=== PATIENT | male | born 1950 | race Caucasian/White ===

== ENCOUNTER 2020-10-05 08:05 | Outpatient (CLI) | payer MEDICARE, SELFPAY | END 2020-10-05 08:06 | disposition home or self-care (01) | LOC: ANHAUDASC 08:07 | PROVIDERS: PCP Family Medicine; Visit Provider Otolaryngology | DX: H90.3 Sensorineural hearing loss, bilateral (principal) | CPT/HCPCS: 92557; 92567 ==

== ENCOUNTER 2021-04-05 10:47 | Outpatient (CLI) | payer MEDICARE, SELFPAY ==
[2021-04-05 18:48] LABS: Basophils Absolute Auto 0.1 K/mm3 (0.0-0.1); Basophils Percent Auto 0.9 % (0.2-1.2); Eosinophils Absolute Auto 0.2 K/mm3 (0-0.3); Eosinophils Percent Auto 3.1 % (0-4.4); Hematocrit 49.4 % (42.0-52.0); Immature Granulocyte Absolute 0.02 K/mm3 (0.00-0.031); Immature Granulocyte Percent A 0.3 % (0-0.5); Lymphocytes Absolute Auto 1.73 K/mm3 (0.9-3.2); Lymphocytes Percent Auto 26.7 % (18.3-44.2); Mean Corpuscular HGB Conc 32.4 g/dl (32-36); Mean Corpuscular Hemoglobin 30.4 pg (26-34); Mean Corpuscular Volume 93.7 fl (80-100); Mean Platelet Volume 11.7 fl (7.4-10.4); Monocytes Absolute Auto 0.7 K/mm3 (0.1-0.6); Neutrophils Absolute Auto 3.8 K/mm3 (1.3-6.7); Platelet Count Result 184 k/mm3 (150-375); Red Blood Count 5.27 M/mm3 (4.6-6.20); Red Cell Distribution Width 14.2 % (11.5-14.5); White Blood Count 6.5 K/mm3 (4.5-10.0)
[2021-04-05 18:52] LABS: Alanine Aminotransferase 31 U/L (4-50); Albumin Level 4.1 g/dL (3.5-5.1); Alkaline Phosphatase 58 U/L (38-126); Anion Gap 5 mmol/L (8-16); Aspartate Amino Transferase 30 U/L (17-59); Bilirubin,Total 0.6 mg/dL (0.2-1.3); Blood Urea Nitrogen 18 mg/dL (9-20); Calcium 9.9 mg/dL (8.4-10.2); Carbon Dioxide 26 mmol/L (22-30); Chloride 108 mmol/L (98-107); Cholesterol 218 mg/dL (0-200); Estimated Glomerular Filt Rate > 60; Glucose 82 mg/dL (65-110); HDL Direct 35 mg/dL; Potassium 4.3 mmol/L (3.4-5.0); Sodium 139 mmol/L (137-145); Triglycerides 144 mg/dL (<150)
[2021-04-05 19:03] LABS: LDL Cholesterol Direct 169 mg/dL
[2021-04-05 19:22] LABS: Prostate Specific Antigen < 0.1 ng/mL (< OR = 4.0)
[2021-04-05 19:23] LABS: Thyroid Stimulating Hormone Reflex 0.898 uIU/mL (0.465-4.68)
[2021-04-05 19:44] LABS: Hemoglobin A1C 5.7 % (<5.7)
== END 2021-04-05 10:48 | disposition home or self-care (01) ==
PROVIDERS: PCP Family Medicine; Visit Provider Family Medicine
DX: E66.9 Obesity, unspecified (principal); H90.5 Unspecified sensorineural hearing loss; R63.8 Other symptoms and signs concerning food and fluid intake; I10 Essential (primary) hypertension; Z85.46 Personal history of malignant neoplasm of prostate; Z79.899 Other long term (current) drug therapy; Z12.5 Encounter for screening for malignant neoplasm of prostate
CPT/HCPCS: 36415; 80053; 80061; 83036; 84153; 84443; 85025; G0103

== ENCOUNTER 2021-06-07 11:50 | Emergency (ER) | payer MEDICARE, SELFPAY ==
[2021-06-07 11:54] VITALS: BP 157/79; PULSE 70; RESP 20; TEMP 36.7; O2SAT 97
--- NOTE | 2021-06-07 12:01 | ED.ABDPAIN ---
HPI - Abdominal Pain General Chief Complaint: Abdominal Pain Stated Complaint: left side pain Time Seen by Provider: 06/07/21 11:55 Source: patient and RN notes reviewed History of Present Illness HPI narrative: Patient is a 70-year-old male who presents the urgent care with complaints of left lower abdominal pain and diarrhea for 1 week. Patient states that he does have a history of a colitis many years ago but does not typically have any flares. Patient denies of any recent change in diet. Denies of any nausea or vomiting. Denies of fever. Patient has not taken anything [id number] for his symptoms. Patient is currently not in any acute distress and states that the pain is exacerbated on palpation. No other acute complaints. No acute distress noted. Patient aware of the plan of care. Some parts of this dictation were generated by voice recognition software and may contain typographical and/or grammatical inaccuracies. Related Data Home Medications Medication Instructions Recorded Confirmed pantoprazole 40 mg tablet,delayed 40 mg PO BID 09/28/20 06/07/21 release lisinopril 10 1 tablet PO DAILY 04/05/21 06/07/21 mg-hydrochlorothiazide 12.5 mg tablet citalopram 20 mg PO DAILY 06/07/21 06/07/21 Allergies Allergy/AdvReac Type Severity Reaction Status Date / Time No Known Allergies Allergy Unverified 06/07/21 12:00 Review of Systems Review of Systems: CONSTITUTIONAL: Denies fever, chills, or sweats. EYES: Denies visual changes, redness, or discharge. ENT: Denies rhinorrhea, congestion, sore throat, or otalgia. CARDIOVASCULAR: Denies chest pain, palpitations, or edema. RESPIRATORY: Denies cough or dyspnea. GASTROINTESTINAL: Reports of left lower abdominal pain with diarrhea GENITOURINARY: Denies dysuria or hematuria. SKIN: Denies rash or itching. MUSCULOSKELETAL: Denies back pain, joint pain, or myalgia. NEUROLOGIC: Denies headache, numbness, or weakness. All other systems reviewed are negative, except as documented in HPI. [facility] Past Medical History Medical History (Updated 06/07/21 @ 12:16 by ELHAM Johnson) Cancer Surgical History Surgical History (Updated 04/05/21 @ 10:00 by Yumiko Kirkpatrick [employer]) History of back surgery History of nasal surgery History of prostate surgery Family History Family History Father Heart problem Social History Social History Smoking status: Never smoker Alcohol intake: current Drinks per week: 1 Substance use: never Comments At the time of my signature, I reviewed and agree with the nursing past medical, surgical, social, and family history. There is no relevant family history pertinent to the patient complaint. Exam Narrative: GENERAL: This is a well-nourished, well-developed patient, in no apparent distress. HEAD: normocephalic, atraumatic. EYES: PERRL. Sclera clear/white. Vision is grossly intact. EARS: External ears normal NOSE: External nose normal with no obvious nasal discharge, nares without redness, no rhinorrhea. THROAT: Mucous membranes moist NECK: Neck supple RESPIRATORY: Clear to auscultation. Breath sounds equal bilaterally. No wheezes, rales, or rhonchi. GASTROINTESTINAL: Abdomen soft, mild left upper abdominal tenderness with moderate left lower tenderness, nondistended. Bowel sounds are hyperactive. SKIN: warm, intact with no suspicious lesions or rash, good texture and turgor. NEURO: awake, alert, and oriented to person, place and time. There were no obvious focal neurologic abnormalities. EXTREMITIES: No clubbing, cyanosis, or edema. Course Course Level of Care: Express Care Visit Vital Signs Vital signs: Vital Signs Temperature 98.0 F 06/07/21 11:54 Pulse Rate 70 06/07/21 11:54 Respiratory Rate 20 06/07/21 11:54 Blood Pressure 157/79 H 06/07/21 11:54 Pulse Oximetry 97 06/07/21 11:5
[2021-06-07 12:03] VITALS: BP 157/79; PULSE 70; RESP 20; TEMP 36.7; O2SAT 97
== END 2021-06-07 12:24 | disposition home or self-care (01) ==
PROVIDERS: Emergency Provider Nurse Practitioner Family; PCP Family Medicine
DX: R10.12 Left upper quadrant pain (principal); R10.32 Left lower quadrant pain; Z87.19 Personal history of other diseases of the digestive system; I10 Essential (primary) hypertension; F32.A Depression, unspecified; Z85.46 Personal history of malignant neoplasm of prostate; Z90.79 Acquired absence of other genital organ(s)
CPT/HCPCS: 99213; G0463

== ENCOUNTER 2021-06-28 07:57 | Outpatient (CLI) | payer MEDICARE, SELFPAY | END 2021-06-28 07:58 | disposition home or self-care (01) | LOC: ANHAUDASC 07:58 | PROVIDERS: PCP Family Medicine; Visit Provider Family Medicine | DX: H90.3 Sensorineural hearing loss, bilateral (principal) | CPT/HCPCS: 92557 ==

== ENCOUNTER 2021-11-08 00:55 | Day surgery (SDC) | payer MEDICARE, SELFPAY ==
[2021-10-29 11:07] VITALS: BMI 35.8
[2021-11-08 10:29] VITALS: BP 148/80; PULSE 80; RESP 18; TEMP 36.4; O2SAT 97
[2021-11-08] MEDS: LACTATED RINGERS 1,000 ML 150 ML IV CONT (10:41)
--- NOTE | 2021-11-08 10:49 | WPDANESEPPF ---
Anes - Initial Pre Proc Eval Procedure: Operation Date: 11/08/21 11:30 Proposed Procedures p Screening Colonoscopy - Jose Cotton MD Date/Time: 11/08/21 10:49 Surgeon: Jose Cotton MD Pre Op Diagnosis: neoplasm screening Patient Data Age: 71 Gender: M Height: 1.73 m Weight: 103 kg Last Vital Signs Temp 36.4 C L 11/08/21 10:29 Pulse 80 11/08/21 10:29 Resp 18 11/08/21 10:29 BP 148/80 H 11/08/21 10:29 Pulse Ox 97 11/08/21 10:29 O2 Del Method Room Air 11/08/21 10:29 Allergies Allergy/AdvReac Type Severity Reaction Status Date / Time No Known Allergies Allergy Verified 11/08/21 10:28 Home Medications Medication Instructions Recorded Confirmed Type pantoprazole 40 mg tablet,delayed 40 mg PO BID #180 tabs 08/09/21 10/29/21 Rx release citalopram 40 mg tablet 40 mg PO DAILY #90 tabs 10/04/21 10/29/21 Rx hydrochlorothiazide 25 mg tablet 25 mg PO DAILY #90 tabs 10/04/21 10/29/21 Rx lisinopril 10 mg tablet 10 mg PO DAILY #90 tabs 10/04/21 10/29/21 Rx Patient hx anesthesia problems: none Family hx anesthesia problems: none Results Review: All pre-operative results and documents have been reviewed as part of the pre-operative evaluation. [facility] Past Medical History Medical History (Updated 11/08/21 @ 10:49 by Luis Davis DO) Cancer Depression Hypertension KACI (obstructive sleep apnea) Surgical History Surgical History (Updated 04/05/21 @ 10:00 by Yumiko Kirkpatrick CMA) History of back surgery History of nasal surgery History of prostate surgery Family History Family History Father Heart problem Social History Social History Smoking status: Never smoker Alcohol intake: current Drinks per week: 1 Substance use: never Substance use type: does not use Living arrangements: with family Spiritual care concerns: No Anes - Eval Final PreProcedure Day of Procedure 11/08/21 10:49 Patient weight: obese Heart: regular rate and rhythm Lungs: clear to auscultation Airway: Mallampati scale class II Neurological: alert and oriented Last oral intake: >/= 8 hours ASA classification: III Emergent: no Anesthetic plan: proceed Anesthesia type and monitoring: general GIVS and standard monitoring Results Review: All pre-operative results and documents have been reviewed as part of the pre-operative evaluation. Informed Consent: The patient's anesthetic plan and its attendant risks and benefits were discussed with the patient/family/POA. Questions were solicited and answers provided to the satisfaction of the patient/family/POA.
--- NOTE | 2021-11-08 11:16 | PM.HPGS ---
History of Present Illness History of Present Illness Consent: Risks, benefits, and alternatives have been discussed and questions answered. Patient agrees to proceed with procedure. Chief complaint: neoplasm screening Narrative: Emmanuel Khanna is a 71 year old male with colon polyp about 5-6 years ago Review of Systems Constitutional: Constitutional: Denies headache(s) and Denies weakness Eyes: Eyes: Denies blurry vision ENT: Reports Normal hearing present, Denies headache(s) and Denies neck pain Cardiovascular: Cardiovascular: Denies chest pain and Denies dyspnea Respiratory: Respiratory: Denies dyspnea Gastrointestinal: Gastrointestinal: Reports no additional gastrointestinal complaints Genitourinary: Genitourinary: Denies dysuria Musculoskeletal: Musculoskeletal: Denies neck pain Integumentary/Breasts: Skin/Breast: Denies dry skin Neurologic: Reports Normal hearing present, Denies headache(s) and Denies weakness Psychiatric: Psychiatric: Denies anxiety Endocrine: Endocrine: Denies change in body appearance Hematologic/Lymphatic: Hematologic/Lymphatic: Denies easy bleeding Allergic/Immunologic: Allergic/Immunologic: Denies urticaria PMFSH Past Medical History Medical History (Updated 11/08/21 @ 10:49 by Luis Davis DO) Cancer Depression Hypertension KACI (obstructive sleep apnea) Surgical History Surgical History (Updated 04/05/21 @ 10:00 by Yumiko Kirkpatrick CMA) History of back surgery History of nasal surgery History of prostate surgery Family History Family History Father Heart problem Social History Social History Smoking status: Never smoker Alcohol intake: current Drinks per week: 1 Substance use: never Substance use type: does not use Living arrangements: with family Spiritual care concerns: No Meds Home Medications and Allergies Home Medications Medication Instructions Recorded Confirmed Type pantoprazole 40 mg tablet,delayed 40 mg PO BID #180 tabs 08/09/21 10/29/21 Rx release citalopram 40 mg tablet 40 mg PO DAILY #90 tabs 10/04/21 10/29/21 Rx hydrochlorothiazide 25 mg tablet 25 mg PO DAILY #90 tabs 10/04/21 10/29/21 Rx lisinopril 10 mg tablet 10 mg PO DAILY #90 tabs 10/04/21 10/29/21 Rx Allergies Allergy/AdvReac Type Severity Reaction Status Date / Time No Known Allergies Allergy Verified 11/08/21 10:28 Vital Signs Vital Signs - 24 hr 11/08/21 10:29 Temperature 97.5 F L Pulse Rate 80 Respiratory Rate 18 Blood Pressure 148/80 H Pulse Oximetry 97 Oxygen Delivery Room Air Exam Const: General: comfortable and no acute distress HENMT: General nose exam: Normal nares present Eyes: General: appearance normal, both eyes and all related structures Neck: Neck: no JVD Resp: Auscultation: clear to auscultation bilaterally Cardio: Rate: regular rate Rhythm: regular rhythm GI: Inspection: non-distended GI Palp: Yes Soft to palpation Skin: General skin exam: normal color Neuro: General: gait normal Speech: normal speech Extrem: General: normal to inspection Psych: Mental Status: mental status grossly normal Assessment and Plan Assessment and plan (1) Colon cancer screening: Code(s): Z12.11 - Encounter for screening for malignant neoplasm of colon Status: Acute Assessment and Plan: colonoscopy
[2021-11-08 11:35] VITALS: BP 108/74; PULSE 77; RESP 17; O2SAT 97
[2021-11-08 11:45] VITALS: BP 120/83; PULSE 78; RESP 18; O2SAT 98
[2021-11-08 11:55] VITALS: BP 133/78; PULSE 78; RESP 18; O2SAT 98
== END 2021-11-08 12:01 | disposition home or self-care (01) ==
PROVIDERS: PCP Family Medicine; Visit Provider Internal Medicine Gastroenterology
PROC: 0DJD8ZZ Inspection of Lower Intestinal Tract, Via Natural or Artificial Opening Endoscopic (ICD-10-PCS; CPT 45378; principal; 2021-11-08 11:30)
DX: Z12.11 Encounter for screening for malignant neoplasm of colon (principal); K63.5 Polyp of colon; K62.1 Rectal polyp; K57.30 Diverticulosis of large intestine without perforation or abscess without bleeding; F32.A Depression, unspecified; I10 Essential (primary) hypertension; G47.33 Obstructive sleep apnea (adult) (pediatric); Z85.9 Personal history of malignant neoplasm, unspecified; E66.9 Obesity, unspecified; Z68.34 Body mass index [BMI] 34.0-34.9, adult
CPT/HCPCS: 45380; 88305; J2704; J7120

== ENCOUNTER 2022-01-19 19:13 | Emergency (ER) | payer MEDICARE, SELFPAY ==
[2022-01-19 19:22] VITALS: BP 123/79; PULSE 90; RESP 20; TEMP 37.1; O2SAT 96
--- NOTE | 2022-01-19 20:30 | ED.SKABFB ---
HPI - Skin/Abscess/Foreign Bdy General Chief complaint: Skin/Abscess/Foreign Body Stated complaint: Skin Problem Time Seen by Provider: 01/19/22 20:30 Source: patient, RN notes reviewed and old records reviewed Mode of arrival: ambulatory Limitations: no limitations History of Present Illness HPI narrative: 71 year old male who presents to [facility] care with complaints of rash to the lower buttock area and to upper posterior thigh area for 1 week duration and small red raised area to right mid thigh which are itchy. 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 Patient reports that he has applied some OTC ointment to areas with no improvement. MD complaint: rash Onset (ago): week(s) (1) Severity scale (1-10): 3 Treatments prior to arrival: OTC topical medication Related Data Allergies Allergy/AdvReac Type Severity Reaction Status Date / Time No Known Allergies Allergy Verified 01/24/22 16:15 Review of Systems Review of Systems: CONSTITUTIONAL: Denies fever, chills, or sweats. CARDIOVASCULAR: Denies chest pain, palpitations, or edema. RESPIRATORY: Denies cough or dyspnea. SKIN: Reports red rash with itching to lower buttock and upper thigh region and small area of redness itching to right mid thigh region MUSCULOSKELETAL: Denies joint pain or myalgia. NEUROLOGIC: Denies headache, numbness, or weakness. All systems reviewed & are unremarkable except as noted in HPI and below PMFSH Past Medical History Medical History Cancer Depression Hypertension KACI (obstructive sleep apnea) Surgical History Surgical History History of back surgery History of nasal surgery History of prostate surgery Family History Family History Father Heart problem Social History Social History Smoking status: Never smoker Alcohol intake: current Drinks per week: 1 Substance use: never Substance use type: does not use Lack of Transportation: No Lack of Food: Never True Current Housing: I Have Housing Concerned About Future Housing: No Difficulty Paying Gas/Electric Bills: No Difficulty Paying for Meds: No Currently Unemployed: No Education: High School Diploma/GED Difficulty w/ Childcare or Family Care: No Spiritual care concerns: No Comments At time of signature, agree with nursing past medical, surgical, social and family history. There is no relevant family history pertinent to the presenting complaint Exam Narrative: GENERAL: Well-appearing, well-nourished, and in no acute distress. HEAD: Normocephalic, atraumatic. EYES: PERRLA, conjunctivae clear, and EOMI. ENT: Mucous membranes moist. Oropharynx without edema, erythema or lesions. NECK: Supple. No lymphadenopathy CHEST: Clear to auscultation. No respiratory distress. HEART: Regular rate and rhythm. SKIN: Warm, dry.? 6cm x 8cm areas of patchy red raised irritated tissue to posterior buttock bilaterally and upper thigh, 3cm area of patchy red rash right thigh areas are itchy NEURO:? Alert and oriented x3. PSYCH: Normal mood and affect Course Course Emergency Course: Patient is aware of diagnosis, understands and agrees to treatment plan.? Anticipatory guidance given.? Patient agrees to follow-up as directed and is aware of reasons to seek care at the emergency department. Portions of this record may have been created with voice recognition software Level of Care: Express Care Visit Vital Signs Vital signs: Vital Signs Temperature 37.1 C 01/19/22 19:22 Pulse Rate 90 01/19/22 19:22 Respiratory Rate 20 01/19/22 19:22 Blood Pressure 123/79 01/19/22 19:22 Pulse Oximetry 96 01/19/22 19:22 Oxygen Delivery Room Air 01/19/22 [facility]
== END 2022-01-19 20:55 | disposition home or self-care (01) ==
PROVIDERS: Emergency Provider Registered Nurse; PCP Family Medicine
DX: L73.9 Follicular disorder, unspecified (principal); I10 Essential (primary) hypertension; G47.33 Obstructive sleep apnea (adult) (pediatric); F32.A Depression, unspecified; Z85.46 Personal history of malignant neoplasm of prostate; Z90.79 Acquired absence of other genital organ(s)
CPT/HCPCS: 99213; G0463

== ENCOUNTER 2022-05-09 09:25 | Outpatient (CLI) | payer MEDICARE, SELFPAY ==
[2022-05-09 18:29] LABS: Basophils Absolute Auto 0.1 K/mm3 (0.0-0.1); Basophils Percent Auto 0.7 % (0.2-1.2); Eosinophils Absolute Auto 0.2 K/mm3 (0-0.3); Hematocrit 53.5 % (42.0-52.0); Hemoglobin 16.8 g/dL (14.0-18.0); Immature Granulocyte Absolute 0.02 K/mm3 (0.00-0.031); Immature Granulocyte Percent A 0.3 % (0-0.5); Lymphocytes Absolute Auto 1.77 K/mm3 (0.9-3.2); Lymphocytes Percent Auto 26.3 % (18.3-44.2); Mean Corpuscular HGB Conc 31.4 g/dl (32-36); Mean Corpuscular Hemoglobin 30.1 pg (26-34); Mean Corpuscular Volume 95.9 fl (80-100); Mean Platelet Volume 11.5 fl (7.4-10.4); Monocytes Absolute Auto 0.7 K/mm3 (0.1-0.6); Monocytes Percent Auto 10.2 % (2.6-8.5); Neutrophils Percent Auto 59.5 % (45.5-73.1); Platelet Count Result 191 k/mm3 (150-375); Red Blood Count 5.58 M/mm3 (4.6-6.20); Red Cell Distribution Width 13.7 % (11.5-14.5); White Blood Count 6.7 K/mm3 (4.5-10.0)
[2022-05-09 20:08] LABS: Alanine Aminotransferase 28 U/L (6-50); Albumin Level 4.1 g/dL (3.5-5.1); Alkaline Phosphatase 66 U/L (38-126); Anion Gap 5 mmol/L (8-16); Aspartate Amino Transferase 39 U/L (17-59); Bilirubin,Total 0.8 mg/dL (0.2-1.3); Blood Urea Nitrogen 15 mg/dL (9-20); Calcium 9.3 mg/dL (8.4-10.2); Carbon Dioxide 32 mmol/L (22-30); Chloride 103 mmol/L (98-107); Cholesterol 183 mg/dL (0-200); Estimated Glomerular Filt Rate > 60; Glucose 107 mg/dL (65-110); HDL Direct 35 mg/dL; Potassium 3.9 mmol/L (3.4-5.0); Sodium 140 mmol/L (137-145); Triglycerides 107 mg/dL (<150)
[2022-05-09 20:19] LABS: LDL Cholesterol Direct 121 mg/dL
[2022-05-09 20:38] LABS: Prostate Specific Antigen < 0.1 ng/mL (< OR = 4.0)
== END 2022-05-09 09:26 | disposition home or self-care (01) ==
PROVIDERS: PCP Family Medicine; Visit Provider Family Medicine
DX: R21 Rash and other nonspecific skin eruption (principal); I10 Essential (primary) hypertension; H91.90 Unspecified hearing loss, unspecified ear; E66.9 Obesity, unspecified; Z12.5 Encounter for screening for malignant neoplasm of prostate; Z85.46 Personal history of malignant neoplasm of prostate; F32.A Depression, unspecified; G47.33 Obstructive sleep apnea (adult) (pediatric)
CPT/HCPCS: 36415; 80053; 80061; 84153; 85025; G0103

== ENCOUNTER 2022-05-30 09:22 | Outpatient (CLI) | payer MEDICARE, SELFPAY ==
--- NOTE | 2022-05-30 09:25 | EST_ITS ---
Patient Info Name: Emmanuel Khanna Age: 71 years : 1950 Gender: Male Ht: 68 in Wt: 227 lbs BSA: 2.26 m2 HR: 65 bpm BP: 167 / 65 mmHg Technical Quality: Fair Exam Date: 05/30/2022 9:44 AM Exam Location: [facility] Patient Status: Outpatient Admit Date: 05/30/2022 Staff Ordering Physician: Rahul Pritchard MD Manager Pharmacy: [facility] Attending Provider: Rahul Pritchard MD Referring Physician: Macho BARROSO; Exercise Technologist: Sameera Chávez CT Exercise Physician: Simón Chavez DO Exam Type: CA stress echo Study Info Indications I10 - Essential (primary) hypertension Treadmill exercise stress echocardiogram is performed. Summary 1. 1. Negative Dariusz exercise stress test for ischemic ST changes by ECG criteria. 2. 2. Reduced functional capacity, achieving 7 METs of workload. 3. 3. Appropriate HR response to exercise. 4. 4. Appropriate HR recovery at 1 minute post exercise. 5. 5. Negative stress echocardiogram for ischemia by wall motion analysis. 6. 6. Patient informed of the above results. Stress Echo Findings Left Ventricle Appropriate increase in LV endocardial thickening with systole. Appropriate augmentation of contractility with systole. No wall motion abnormality. Left Ventricle Normal LV systolic function, no wall motion abnormality. Protocol: Dariusz Stress ECG Details Stage: REST Duration (min): 1 min : 18 sec Speed (mph): 0.0 Grade (%): 0 HR (bpm): 78 SBP (mmHg): 131 DBP (mmHg): 80 METS: --- Stage: REST Duration (min): 25 min : 59 sec Speed (mph): 0.0 Grade (%): 0 HR (bpm): 79 SBP (mmHg): 131 DBP (mmHg): 80 METS: --- Stage: STAGE 1 Duration (min): 1 min : 0 sec Speed (mph): 1.7 Grade (%): 10 HR (bpm): 97 SBP (mmHg): 131 DBP (mmHg): 80 METS: --- Stage: STAGE 1 Duration (min): 2 min : 0 sec Speed (mph): 1.7 Grade (%): 10 HR (bpm): 106 SBP (mmHg): 131 DBP (mmHg): 80 METS: --- Stage: STAGE 1 Duration (min): 3 min : 0 sec Speed (mph): 1.7 Grade (%): 10 HR (bpm): 108 SBP (mmHg): 163 DBP (mmHg): 65 METS: --- Stage: STAGE 2 Duration (min): 1 min : 0 sec Speed (mph): 2.5 Grade (%): 12 HR (bpm): 118 SBP (mmHg): 163 DBP (mmHg): 65 METS: --- Stage: STAGE 2 Duration (min): 2 min : 0 sec Speed (mph): 2.5 Grade (%): 12 HR (bpm): 127 SBP (mmHg): 159 DBP (mmHg): 70 METS: --- Stage: STAGE 2 Duration (min): 3 min : 0 sec Speed (mph): 2.5 Grade (%): 12 HR (bpm): 130 SBP (mmHg): 159 DBP (mmHg): 70 METS: --- Stage: STAGE 3 Duration (min): 0 min : 1 sec Speed (mph): 0.0 Grade (%): 0 HR (bpm): 130 SBP (mmHg): 159 DBP (mmHg): 70 METS: --- Stage: RECOVERY Duration (min): 0 min : 58 sec Speed (mph): 0.0 Grade (%): 0 HR (bpm): 104 SBP (mmHg): 150 DBP (mmHg): 63 METS: --- Stage: RECOVERY
== END 2022-05-30 09:23 | disposition home or self-care (01) ==
PROVIDERS: PCP Family Medicine; Visit Provider Family Medicine
DX: I10 Essential (primary) hypertension (principal)
CPT/HCPCS: 93351

== ENCOUNTER 2022-11-07 09:29 | Outpatient (CLI) | payer MEDICARE, SELFPAY ==
[2022-11-07 19:24] LABS: Basophils Percent Auto 0.5 % (0.2-1.2); Eosinophils Absolute Auto 0.2 K/mm3 (0-0.3); Hematocrit 53.9 % (42.0-52.0); Hemoglobin 17.3 g/dL (14.0-18.0); Immature Granulocyte Absolute 0.01 K/mm3 (0.00-0.031); Immature Granulocyte Percent A 0.2 % (0-0.5); Lymphocytes Absolute Auto 1.52 K/mm3 (0.9-3.2); Lymphocytes Percent Auto 26.4 % (18.3-44.2); Mean Corpuscular HGB Conc 32.1 g/dl (32-36); Mean Corpuscular Hemoglobin 30.9 pg (26-34); Mean Corpuscular Volume 96.3 fl (80-100); Mean Platelet Volume 11.7 fl (7.4-10.4); Monocytes Absolute Auto 0.5 K/mm3 (0.1-0.6); Neutrophils Absolute Auto 3.5 K/mm3 (1.3-6.7); Neutrophils Percent Auto 60.9 % (45.5-73.1); Platelet Count Result 165 k/mm3 (150-375); Red Cell Distribution Width 14.4 % (11.5-14.5); White Blood Count 5.8 K/mm3 (4.5-10.0)
[2022-11-07 20:08] LABS: Alanine Aminotransferase 27 U/L (6-50); Albumin Level 4.1 g/dL (3.5-5.1); Alkaline Phosphatase 52 U/L (38-126); Anion Gap 6 mmol/L (8-16); Aspartate Amino Transferase 47 U/L (17-59); Blood Urea Nitrogen 17 mg/dL (9-20); Calcium 9.4 mg/dL (8.4-10.2); Carbon Dioxide 29 mmol/L (22-30); Chloride 102 mmol/L (98-107); Estimated Glomerular Filt Rate > 60; Glucose 97 mg/dL (65-110); Potassium 3.8 mmol/L (3.4-5.0); Sodium 137 mmol/L (137-145)
[2022-11-07 20:24] LABS: Prostate Specific Antigen < 0.1 ng/mL (< OR = 4.0)
== END 2022-11-07 09:30 | disposition home or self-care (01) ==
PROVIDERS: PCP Family Medicine; Visit Provider Family Medicine
DX: E66.9 Obesity, unspecified (principal); G47.33 Obstructive sleep apnea (adult) (pediatric); I10 Essential (primary) hypertension; Z12.5 Encounter for screening for malignant neoplasm of prostate; Z85.46 Personal history of malignant neoplasm of prostate
CPT/HCPCS: 36415; 80053; 84153; 85025

== ENCOUNTER 2023-05-15 09:38 | Outpatient (CLI) | payer MEDICARE, SELFPAY ==
[2023-05-15 19:24] LABS: Alanine Aminotransferase 24 U/L (6-50); Alkaline Phosphatase 55 U/L (38-126); Anion Gap 4 mmol/L (8-16); Aspartate Amino Transferase 34 U/L (17-59); Bilirubin,Total 0.9 mg/dL (0.2-1.3); Blood Urea Nitrogen 15 mg/dL (9-20); Calcium 9.8 mg/dL (8.4-10.2); Carbon Dioxide 29 mmol/L (22-30); Chloride 103 mmol/L (98-107); Cholesterol 134 mg/dL (0-200); Estimated Glomerular Filt Rate > 60; Glucose 114 mg/dL (65-110); HDL Direct 40 mg/dL; Potassium 3.7 mmol/L (3.4-5.0); Sodium 136 mmol/L (137-145); Triglycerides 101 mg/dL (<150)
[2023-05-15 19:31] LABS: Hematocrit 53.7 % (42.0-52.0); Hemoglobin 17.3 g/dL (14.0-18.0); Mean Corpuscular HGB Conc 32.2 g/dl (32-36); Mean Corpuscular Hemoglobin 30.8 pg (26-34); Mean Corpuscular Volume 95.7 fl (80-100); Mean Platelet Volume 11.4 fl (7.4-10.4); Platelet Count Result 193 k/mm3 (150-375); Red Blood Count 5.61 M/mm3 (4.6-6.20); Red Cell Distribution Width 13.8 % (11.5-14.5); White Blood Count 6.9 K/mm3 (4.5-10.0)
[2023-05-15 19:35] LABS: LDL Cholesterol Direct 83 mg/dL
[2023-05-17 17:15] LABS: PSA, Free <0.01 ng/mL; PSA, Total <0.1 ng/mL (<=4.0)
== END 2023-05-15 09:39 | disposition home or self-care (01) ==
PROVIDERS: PCP Nurse Practitioner Adult Health; Visit Provider Family Medicine
DX: Z12.5 Encounter for screening for malignant neoplasm of prostate (principal); Z85.46 Personal history of malignant neoplasm of prostate; E66.9 Obesity, unspecified; F32.A Depression, unspecified; G47.33 Obstructive sleep apnea (adult) (pediatric); I10 Essential (primary) hypertension; R32 Unspecified urinary incontinence
CPT/HCPCS: 36415; 80053; 80061; 84153; 84154; 85027

== ENCOUNTER 2024-05-20 08:47 | Outpatient (CLI) | payer MEDICARE, SELFPAY ==
--- OUTSIDE RECORDS SUMMARY | 2024-05-20 09:23 | XMS_ITS | Clinical Summary ---
Author Organization [facility] [address] [facility] lt Address [address] [place] [address] Care Team Providers Care Belt Loop Machine Operator Name Role Phone Jose Bar MD Unavailable + Rahul Pritchard MD Primary Care Provider [phone] Jose Shearer MD Unavailable [phone] Allergies No known active allergies Medications furosemide (LASIX) 40 mg tablet Take 1 tablet (40 mg total) by mouth daily 30 tablet 11 0 Active cholecalciferol (VITAMIN D-3) 2000 unit capsule 1 capsule (2,000 Units total) daily Active ascorbic acid (VITAMIN C) 1,000 mg tablet Take 1 tablet (1,000 mg total) by mouth daily Active lisinopril-hydr oCHLOROthiazide (ZESTORETIC) 10-12.5 mg per tablet Take 1 tablet by mouth daily 90 tablet [address] (PROTONIX) 40 mg EC tablet Take 1 tablet (40 mg total) by mouth 2 (two) times a day 180 tablet 1 1 Active hydroCHLOROthia zide (HYDRODIURIL) 25 mg tablet Take 1 tablet (25 mg total) by mouth daily 2 Active rosuvastatin (CRESTOR) 20 mg tablet Take 1 tablet (20 mg total) by mouth daily 3 Active citalopram (CeleXA) 40 mg tablet Take 1 tablet (40 mg total) by mouth daily 3 Active oxyBUTYnin XL (DITROPAN XL) 15 mg 24 hr tablet Take 1 tablet (15 mg total) by mouth daily 4 Active celecoxib (CeleBREX) 200 mg capsuleIndicati ons:Postoperati ve Acute Pain Take 1 capsule (200 mg total) by mouth 2 (two) times a day 84 capsule 4 Active ondansetron (ZOFRAN) 8 mg tabletIndicatio ns:Prevention of Post-Operative Nausea and Vomiting Take 1 tablet (8 mg total) by mouth every 8 (eight) hours as needed for nausea or vomiting 20 tablet 2 4 Active senna-docusate (PERICOLACE) 8.6-50 mg Take 1 tablet by mouth 2 (two) times a day as needed for constipation 60 tablet 2 4 Active oxyCODONE-aceta minophen (PERCOCET) 5-325 mg per tabletIndicatio ns:Pain Take 1-2 tablets by mouth every 4 (four) hours as needed for pain 40 tablet 4 Active vitamin E 400 unit capsule Take 1 capsule (400 Units total) by mouth daily Active aspirin 325 mg enteric coated tabletIndicatio ns:Deep Vein Thrombosis Prevention Take 1 tablet (325 mg total) by mouth daily 42 tablet 4 Active Hospital, Clinic, or Other Facility Administered Medication Ordered Dose Route Frequency Start Date End Date Status lidocaine (XYLOCAINE) 10 mg/mL (1 %) injection 20 mgIndications:Administ ration of Local Anesthesia 20 mg infiltrate Once 04/29/2024 04/29/2024 Ended triamcinolone (KENALOG) 40 mg/mL injection 80 mgIndications:Arthriti s of carpometacarpal (CMC) joint of right thumb,Arthritis of carpometacarpal (CMC) joint of both thumbs 80 mg OTHER Once 04/29/2024 04/29/2024 Ende d Active Problems Problem Noted Date Diagnosed Date Aftercare following right knee joint replacement surgery 02/07/2024 Aftercare following left knee joint replacement surgery 01/11/2024 Prostate cancer 03/26/2020 Overview (03/26/2020): Added automatically from request for surgery [id number] Severe obesity (BMI 35.0-39.9) with comorbidity 02/10/2020 Current moderate episode of major depressive dis order 02/10/2020 GERD (gastroesophageal reflux disease) 8 Acute gastric ulcer 05/03/2017 Acute blood loss anemia 05/02/2017 Assessment & Plan (05/02/2017 12:20 PM DELIVERY LEAD): Consistent with upper GIB, will proceed with urgent EGD later today Keep hb>7 Melena 05/02/2017 Assessment & Plan (05/02/2017 12:21 PM DELIVERY LEAD): Npo status, EGD. IV protonix and monitor h/h Dyspnea on exertion 05/02/2017 Assessment & Plan (05/02/2017 12:21 PM DELIVERY LEAD): Due to symptomatic anemia, better after blood transfusion Exertional chest pain 05/02/2017 Gastrointestinal hemorrhage with melena 05/03/19 18 Assessment & Plan (05/02/2017 12:22 PM DELIVERY LEAD): egd Arthritis 09/21/2015 Pure hypercholesterolemia 09/21/2015 HTN (hypertension) 03/16/2015 Benign prostatic hypertrophy without urinary obs truction 07/13/2013 Overview (06/03/2016): BPH W/O URINARY OBSTRUCT Blood in urine 09/03/2009 Symptomatic anemia Gastric ulcer Resolved Problems Problem Noted Date Diagnosed Date Resolved Date Primary osteoarthritis of right knee 12/15/2023 02/07/2024 Bilateral primary osteoarthritis of knee 05/15/2017 02/07/2024 Encounters Date Type Department Care Team Description 04/29/2024 9:15 AM DELIVERY LEAD Office Visit [facility] [address] [place] [address] [address] [place] [id number] Lacy Landeros, EDWARD Bilateral hand pain (Primary Dx); Pain of hand, unspecified laterality; Arthritis of carpometacarpal (CMC) joint of right thumb; Arthritis of carpometacarpal (CMC) joint of both thumbs 04/01/2024 10:15 AM DELIVERY LEAD Office Visit [facility] Sports Medicine and Primary Care at [address] [place] [address] Keenan Mejia, Primary osteoarthritis of left knee (Primary Dx) 04/01/2024 Documentation [facility] Medical [facility] Sports Medicine and Primary Care at [address] [address] Riddhi Galindo MA 03/25/2024 9:00 AM DELIVERY LEAD Office Visit [facility] Sports Medicine and Primary Care at [address] [address] Keenan Mejia, Primary osteoarthritis of left knee (Primary Dx) 03/25/2024 Telephone [facility] Sports Medicine and Primary Care at [address] [id number] Riddhi Galindo MA from Last 3 Months Immunizations Immunization Administration Dates Next Due Influenza, Quadrivalent, Hig h Dose, Preservative Free, Intrr 10/21/2019 Influenza, Quadrivalent, Spl it, Preservative Free, Intramuscular 11/07/2016,02/26/2015 Influenza, Trivalent, High D ose, Split, Preservative Free, Intramuscular 12/04/2017 Influenza, Trivalent, IM (MDV) 11/06/2008 Influenza, Trivalent, Preser vative Free, Intramuscular 12/22/2014,01/21/2014 Influenza, Unspecified 01/10/2019 Pneumococcal Conjugate PCV 13 01/10/2019, 018,11/07/2016 Pneumococcal Polysaccharide PPV23 02/10/2020 Tdap 03/16/2015 Surgical History Surgery Date Site/Laterality Comments EYE SURGERY 04/07/2017 Right cataract removal with lens implate EYE SURGERY 04/17/2017 Left SPINE SURGERY L4-L5 disc and vertebrae fx NOSE SURGERY PROSTATE SURGERY Prostatectomy KNEE SURGERY Medical History Medical History Date Comments History of transfusion Hypertension CHF (congestive heart failure) (HCC) Sleep apnea Peptic ulceration GERD (gastroesophageal reflux disease) Delayed emergence from general anesthesia Cancer (HCC) Prostate cancer Depression Family History Medical History Relation Name Comments Coronary artery disease Brother 2 Isis nary artery disease; Other Father Hypertension, C AD; Relation Name Status Comments Brother 1 Alive Brother 2 Father Mother Social History Tobacco Use Types Packs/Day Years Used Date Smoking Tobacco: Never Smokeless Tobacco: Never Tobacco Cessation:Counseling Given: Not Answered Alcohol Use Standard Drinks/Week Comments Not Currently 0 (1 standard drink = 0.6 oz pur e alcohol) AUDIT-C Answer Date Recorded Q1: How often do you have a drink containing alc ohol? Monthly or less 12/21/2023 Q2: How many drinks containi ng alcohol do you have on a typical day when you are drinking? 1 or 2 12/21/2023 Frequency of Binge Drinking Not on file 11/28 PHQ-2 Answer Date Recorded PHQ-2 Total Score (If total score is 3 or more points, staff should administer the PHQ-9) 0 12/27/2023 Personal Safety Answer Date Recorded Have you ever been in or are you currently in a harmful physical or emotional relationship or is someone making you feel afraid or unsafe? Denies 12/27/2023 Sex and Gender Information Value Date Recorded Sex Assigned at Not on file Legal Sex Male 7:01 PM DELIVERY LEAD Gender Identity Not on file Sexual Orientation Not on file Obstetrics History Last Filed Vital Signs Vital Sign Reading Time Taken Comments Blood Pressure 125/81 04/01/2024 10:21 AM DELIVERY LEAD Pulse 66 04/01/2024 10:21 AM DELIVERY LEAD Temperature 36.5 C (97.7 F) 12/28/2023 8:41 AM CDT Respiratory Rate 16 03/25/2024 9:11 AM DELIVERY LEAD Oxygen Saturation 95% 12/28/2023 8:41 AM CDT Inhaled Oxygen Concentration - - Weight 98.4 kg (217 lb) 04/01/2024 10:21 AM DELIVERY LEAD Height 172.7 cm (5' 8 ) 04/01/2024 10:21 AM DELIVERY LEAD Body Mass Index 32.99 04/01/2024 10:21 AM DELIVERY LEAD Plan of Treatment Health Maintenance Due Date Last Done Comments Hepatitis C Screening 1950 Hepatitis B Screening 10/17/1969 Zoster Vaccine (1 of 2) 10/17/2001 Well Visit 65+ 02/09/2021 02/10/2020, 12/10/2018, 11/07/2016 Influenza Vaccine (#1) 2023 , 01/10/2019, 12/04/2017, Additional history exists Depression Screening 12/14/2024 12/15/2023, 03/30/2020, 03/26/2020, Additional history exists Fall Risk Assessment 12/27/2024 12/28/2023, 12/15/2023, 03/30/2020, Additional history exists Colon Cancer Screening-Colonoscopy 01/14/2025 01/14/2015 DTaP/Tdap/Td Vaccine (2 - Td or Tdap) 03/16/2025 03/16/2015 Colon Cancer Screening-CT Colonography Discontinued 01/14/2015 Colon Cancer Screening-DNA Stool Discontinued 01/15/20 15 Colon Cancer Screening-FIT Discontinued 01/14/2015 Colon Cancer Screening-Sigmoidoscopy Discontinued 01/14/2015 Pneumococcal vaccine 65+ Completed 020, 01/10/2019, 12/04/2017, Additional history exists Prostate Cancer Screening-PSA Discontinued , 10/05/2020, 02/24/2020, Additional history exists Medical Devices Implanted Type Area Plate Washer Device Identifier Shelf Expiration Date Model / Serial / Lot [employer] Component Femoral Knee Porous Posterior Stabilized Right Attune Size 6 [employer] [id number] - [id number] Implanted:Qty: 1 on 12/27/2023 by Jose Shearer MD at [facility] [employer] 09/26/2033 [id number] / / [id number] [employer] Attune Fb Tib Base Sz 6 Por [id number] - [id number] Implanted:Qty: 1 on 12/27/2023 by Jose Shearer MD at [facility] Right: Knee [employer] 08/26/2033 [id number] / / [id number] [employer] Attune 6mm Posterior Stabilize Fix Bearing Knee 6 Insert Tibial [id number] - [id number] Implanted:Qty: 1 on 12/27/2023 by Jose Shearer MD at [facility] Right: Knee [employer] 08/26/2028 [id number] / / [id number] Procedures Procedure Name Priority Date/Time Associated Diagnosis Comments NC ARTHROCENTESIS ASPIR&/INJ MAJOR JT/BURSA W/US Routine 04/01/2024 10:15 AM DELIVERY LEAD Primary osteoarthritis of left knee PSA DIAGNOSTIC Routine 10/25/2021 8:36 AM CDT Prostate cancer (HCC) COLONOSCOPY Routine 01/14/2015 from Last 3 Months or Most Recently Relevant to Health Maintenance Results * NC ARTHROCENTESIS ASPIR&/INJ MAJOR JT/BURSA W/US (04/01/2024 10:15 AM DELIVERY LEAD) Keenan Reed DO - 04/01/2024 10:15 AM DELIVERY LEAD Keenan Mejia DO 04/01/2024 10:52 AM Large Joint Injection w/ Ultrasound Guidance: L knee Performed by: Keenan Mejia DO Authorized by: Keenan Mejia DO Large Joint Injection/Aspiration: Consent Given by: Patient Site marked: the procedure site was marked Timeout: prior to procedure the correct patient, procedure, and site was verified Verbal consent obtained: Yes Supporting Documentation: Indications: Pain Procedure Details: Location: Knee Site: L knee Prep: patient was prepped and draped in usual sterile fashion Prep: patient was prepped using a clean technique Needle Size: 22 G Approach: Lateral Ultrasound guided: Yes Fluroscopic guidance: No Ultrasound guidance used for: Real-time guidance Sterile ultrasond techniques: Sterile gel and sterile probe covers were used Ultrasound note: Ultrasound guided left knee injection Patient name: Karena A Fielder Performing physician: Keenan Mejia DO, AKHIL, IFTIKHAR Reason for procedure: Left knee osteoarthritis Patient is supine with the left knee in passive 30 of flexion. The lateral knee was sterilized using Hibiclens. The L4-12 T transducer was placed on the proximal portion of the knee identifying the suprapatellar recess and joint capsule in long axis. The probe was moved to short axis and again the joint capsule was identified. A 22 gauge 1.5 in needle was inserted on the lateral aspect of the knee at the level of the capsule, and the needle tip was identified in the subcutaneous tissue. The needle was advanced, in real time, to the capsule and once noted within the capsule, a substrate of 3ml of Durolane was injected into the joint capsule. Flow of fluid within the joint capsule was noted for confirmation of placement. Needle was removed, the area was cleansed, and covered with a Band-Aid. Impression: 1 - successful injection of the left knee capsule under ultrasound guidance Medications: 60 mg hyaluronate sodium, stabilized 60 mg/3 mL us Keenan Mejia DO IN CLINIC[facility]BEDSIDE [facility] Final Result * PSA diagnostic (10/25/2021 8:36 AM CDT) PSA-Total <0.01 <=6.20 ng/mL SONIYA RIVAS ([place]) Comment: Interpretive Data AGE SEX REFERENCE INTERVAL 0 minutes-150 years Female None 0 minutes-49 years Male None 50-59 years Male 0-3.90 60-69 years Male 0-5.40 70-79 years Male 0-6.20 80-150 years Male 0-6.20 The Christine PSA Total assay procedure was used. Results from different manufacturers or methods may not be comparable. Serial testing should be performed using the same method. Current interpretive data last revised 21. Testing performed by: [facility], [address] [place] [address]., [id number] Blood 10/25/2021 8:36 AM CDT 10/25/2021 11:23 AM CDT David Martin MD LAB BLOOD ORDERABLES Final Re sult SONIYA EVELYN ([place]) [address] [facility] [place] [address] * Colonoscopy (01/14/2015) Anatomical Region Laterality Modality Other Historical Provider ENDOSCOPY PROCEDURES Elizabeth l Result from Last 3 Months or Most Recently Relevant to Health Maintenance [place] [address] MEDICARE [facility] INSURANCE [employer] MEDICARE GOLD [facility] [place] [place] [id number] MEDICARE [facility] Address: [address] [address] [place] [address] [employer] MEDICARE Advance Directives For more information, please contact: [phone] * Full Code (Latest Code Status on File) Date Activated Date Inactivated Comments 12/27/2023 11:46 AM 12/28/2023 3:04 PM * Full Code Date Activated Date Inactivated Comments 04/28/2020 2:23 PM 04/29/2020 9:22 PM * Full Code Date Activated Date Inactivated Comments 08/07/2017 7:08 AM 08/07/2017 10:41 AM * Full Code Date Activated Date Inactivated Comments 05/01/2017 9:52 PM 05/03/2017 9:05 PM Care Teams Belt Loop Machine Operator Relationship Specialty Start Date End Date Rahul Pritchard MD PCP - General Family Practice 05/03/21 Jose Bar MD Consulting Physician Gastroenterology 05/03/17 Jose Shearer MD [address] [place] [address] [place] [address] Surgeon Orthopedic Surgery 12/28/23
--- OUTSIDE RECORDS SUMMARY | 2024-05-20 09:23 | XMS_ITS | Encounter Summary ---
Author Organization [facility] Healthcare Address [address] [place] [address] Care Team Providers Care Commissary Superintendent Name Role Phone Jai Carson MD Primary Care Provider + [phone] Jose Bar MD Unavailable + Rahul Pritchard MD Primary Care Provider + [phone] Jose Shearer MD Unavailable [phone] Encounter Details Date Type Department Care Team (Late st Contact Info) Description 03/03/2020 Telephone [facility] Radiology [address] [place] [address] Nina Taylor, HEALTH PROMOTION EDUCATOR [address] [facility] [place] [address] Social History Tobacco Use Types Packs/Day Years Used Date Smoking Tobacco: Never Smokeless Tobacco: Never Alcohol Use Standard Drinks/Week Comments Not Currently 0 (1 standard drink = 0.6 oz pur e alcohol) PHQ-2 Answer Date Recorded PHQ-2 Score 0 02/10/2020 Sex and Gender Information Value Date Recorded Sex Assigned at Not on file Legal Sex Male 7:01 PM METER TESTER PRIMARY Gender Identity Not on file Sexual Orientation Not on file documented as of this encounter Plan of Treatment Not on file documented as of this encounter Visit Diagnoses Not on filedocumented in this encounter Care Teams Commissary Superintendent Relationship Specialty Start Date End Date [place] [place] [address] PCP - General 03/06/07 05/02/21 Rahul Pritchard MD [address] [place] [address] PCP - General Family Practice 05/03/21 Jose Bar MD [address] [place] [address] Consulting Physician Gastroenterology 05/03/17 Jose Shearer MD [address] [place] [address] Surgeon Orthopedic Surgery 12/28/23 documented as of this encounter
--- OUTSIDE RECORDS SUMMARY | 2024-05-20 09:23 | XMS_ITS | Clinical Summary ---
Author Organization [facility] Address [address], [place] [address] Phone Care Team Providers Care Longwall Machine Operator Helper Name Role Phone Jai Carson MD Primary Care Provider [phone] Allergies No known active allergies Medications lansoprazole (PREVACID) 15 MG CAPSULE DELAYED RELEASE Take 1 Cap by mouth daily. 90 Cap 3 09/21/2015 Active zolpidem (AMBIEN) 10 MG Tablet TAKE ONE TABLET BY MOUTH AT BEDTIME NEEDED FOR SLEEP 30 Tab 1 09/14/2016 Active lisinopril-hydr oCHLOROthiazide (PRINZIDE, ZESTORETIC) 10-12.5 MG Tablet TAKE ONE TABLET BY MOUTH ONCE DAILY 90 Tab 11/02/2016 Active Active Problems Problem Noted Date Diagnosed Date Pure hypercholesterolemia 09/21/2015 Arthritis 09/21/2015 HTN (hypertension) 03/16/2015 GERD (gastroesophageal reflux disease) Immunizations Immunization Administration Dates Next Due Influenza Vaccine, Quadrivalent, PF 02/26/2015 PUR TDAP 7+ YRS IM 03/16/2015 Family History Medical History Relation Name Comments Congestive Heart Failure Father Heart Attack Father Relation Name Status Comments Father Mother Social History Tobacco Use Types Packs/Day Years Used Date Smoking Tobacco: Never Smokeless Tobacco: Never Tobacco Cessation:Counseling Given: Yes Alcohol Use Standard Drinks/Week Comments Yes 0 (1 standard drink = 0.6 oz pur e alcohol) Rare Sex and Gender Information Value Date Recorded Sex Assigned at Not on file Legal Sex Male 8:57 PM CDT Gender Identity Not on file Sexual Orientation Not on file Last Filed Vital Signs Vital Sign Reading Time Taken Comments Blood Pressure 130/82 02/25/2018 8:46 AM ELECTRONIC GLUING MACHINE OPERATOR Pulse 78 02/25/2018 8:46 AM ELECTRONIC GLUING MACHINE OPERATOR Temperature 37.2 C (99 F) 02/25/2018 8:46 AM ELECTRONIC GLUING MACHINE OPERATOR Respiratory Rate 16 02/25/2018 8:46 AM ELECTRONIC GLUING MACHINE OPERATOR Oxygen Saturation 96% 02/25/2018 8:46 AM ELECTRONIC GLUING MACHINE OPERATOR Inhaled Oxygen Concentration - - Weight 115.7 kg (255 lb) 02/25/2018 8:46 AM ELECTRONIC GLUING MACHINE OPERATOR Height 172.7 cm (5' 8 ) 09/21/2015 9:46 AM CDT Body Mass Index 38.77 09/21/2015 9:46 AM CDT Plan of Treatment Health Maintenance Due Date Last Done Comments Hepatitis C Virus (HCV) Screening 1950 Cologuard 10/17/2001 Immunochemical Fecal Occult Blood 10/17/2001 Pneumococcal Immunization (5 0+ years) (1 of 1 - PCV) 10/17/2001 Zoster Immunization (1 of 2) 10/17/2001 Influenza Immunization (#1) 10/29/202301/29, 12/22/2014 SARS-COV-2 Immunization ( season) 2023 01/04/2021, 05/29/2020, 05/08/2020 Colonoscopy 01/14/2025 01/14/2015 Colorectal Cancer Screening 01/14/2025 Td Immunization Every 10 Yea rs (Adults With 1 Tdap) 03/16/2025 03/16/2015 Respiratory Syncytial Virus (RSV) Immunization (Adult) (1 - 1-dose 75+ series) 10/17/2026 01/14/2015 Hepatitis B Immunization Aged Out No longer eligible based on patient's age to complete this topic Meningococcal Immunization (ACWY) Aged Out No longer eligible b ased on patient's age to complete this topic Rotavirus Immunization Aged Out No lo nger eligible based on patient's age [place] [address] [place] [address] MEDICARE COMMERCIAL GENERIC Care Teams Longwall Machine Operator Helper Relationship Specialty Start Date End Date Jai Carson MD [address] [place] [address] PCP - General Internal Medicine 02/25/18
--- OUTSIDE RECORDS SUMMARY | 2024-05-20 09:23 | XMS_ITS | Referral Summary ---
Author Organization [facility] [address] [facility] lto Address [address] [place] [address] Care Team Providers Care Final Armature Tester Name Role Phone Jose Bar MD Unavailable + Rahul Pritchard MD Primary Care Provider [phone] Jose Shearer MD Unavailable [phone] Encounters Date Type Department Care Team Description 04/29/2024 9:15 AM COOLER CONVEYOR LOADER Office Visit [facility] Surgery [address] [place] [address] [place] [phone] Lacy Landeros NP Bilateral hand pain (Primary Dx); Pain of hand, unspecified laterality; Arthritis of carpometacarpal (CMC) joint of right thumb; Arthritis of carpometacarpal (CMC) joint of both thumbs 04/01/2024 Documentation [facility] at [address] [place] [phone] Riddhi Galindo MA 04/01/2024 10:15 AM COOLER CONVEYOR LOADER Office Visit [facility] Primary [facility] at [address] [place] [phone] Keenan Mejia DO Primary osteoarthritis of left knee (Primary Dx) 03/25/2024 Telephone [facility] at [address] [place] [phone] Riddhi Galindo MA 03/25/2024 9:00 AM COOLER CONVEYOR LOADER Office Visit [facility] Primary [facility] at [address] [place] [phone] Keenan Mejia DO Primary osteoarthritis of left knee (Primary Dx) from Last 3 Months Allergies No known active allergies Medications furosemide [...] as needed for constipation 60 tablet 2 10/31/202 4 Active oxyCODONE-aceta minophen (PERCOCET) 5-325 mg [...] (03/26/2020): Added automatically from request for surgery [id number] Severe obesity (BMI 35.0-39.9) with comorbidity 02/10/2020 Current moderate episode of major depressive dis order 02/10/2020 GERD (gastroesophageal reflux disease) 8 Acute gastric ulcer 05/03/2017 Acute blood loss anemia 05/02/2017 Assessment & Plan (05/02/2017 12:20 PM COOLER CONVEYOR LOADER): Consistent with upper GIB, will proceed with urgent EGD later today Keep hb>7 Melena 05/02/2017 Assessment & Plan (05/02/2017 12:21 PM COOLER CONVEYOR LOADER): Npo status, EGD. IV protonix and monitor h/h Dyspnea on exertion 05/02/2017 Assessment & Plan (05/02/2017 12:21 PM COOLER CONVEYOR LOADER): Due to symptomatic anemia, better after blood transfusion Exertional chest pain 05/02/2017 Gastrointestinal hemorrhage with melena 05/03/19 18 Assessment & Plan (05/02/2017 12:22 PM COOLER CONVEYOR LOADER): egd Arthritis 09/21/2015 Pure hypercholesterolemia 09/21/2015 HTN (hypertension) 03/16/2015 Benign prostatic hypertrophy without urinary obs truction 07/13/2013 Overview (06/03/2016): BPH W/O URINARY OBSTRUCT Blood in urine 09/03/2009 Symptomatic anemia Gastric ulcer Resolved Problems Problem Noted Date Diagnosed Date Resolved Date Primary osteoarthritis of right knee 12/15/2023 02/07/2024 Bilateral primary osteoarthritis of knee 05/15/2017 02/07/2024 Immunizations Immunization Administration Dates Next Due Influenza, Quadrivalent, Hig h Dose, Preservative Free, Intrr 10/21/2019 Influenza, Quadrivalent, Spl it, Preservative Free, Intramuscular 11/07/2016,02/26/2015 Influenza, Trivalent, High D ose, Split, Preservative Free, Intramuscular 12/04/2017 Influenza, Trivalent, IM (MDV) 11/06/2008 Influenza, Trivalent, Preser vative Free, Intramuscular 12/22/2014,01/21/2014 Influenza, Unspecified 01/10/2019 Pneumococcal Conjugate PCV 13 01/10/2019, 018,11/07/2016 Pneumococcal Polysaccharide PPV23 02/10/2020 Tdap 03/16/2015 Social History Tobacco Use Types Packs/Day Years [...] on file Legal Sex Male 7:01 PM COOLER CONVEYOR LOADER Gender Identity Not on file Sexual Orientation Not on file Last Filed Vital Signs Vital Sign Reading Time Taken Comments Blood Pressure 125/81 04/01/2024 10:21 AM COOLER CONVEYOR LOADER Pulse 66 04/01/2024 10:21 AM COOLER CONVEYOR LOADER Temperature 36.5 C (97.7 F) 12/28/2023 8:41 AM CDT Respiratory Rate 16 03/25/2024 9:11 AM COOLER CONVEYOR LOADER Oxygen Saturation 95% 12/28/2023 8:41 AM CDT Inhaled Oxygen Concentration - - Weight 98.4 kg (217 lb) 04/01/2024 10:21 AM COOLER CONVEYOR LOADER Height 172.7 cm (5' 8 ) 04/01/2024 10:21 AM COOLER CONVEYOR LOADER Body Mass Index 32.99 04/01/2024 10:21 AM COOLER CONVEYOR LOADER Plan of Treatment Not on file Medical Devices Implanted Type Area Stabilizing Machine Operator Device Identifier Shelf Expiration Date Model / Serial / Lot [employer] Component Femoral Knee Porous Posterior Stabilized Right Attune Size 6 [place] Chromium [id number] - [id number] Implanted:Qty: 1 on 12/27/2023 by Jose Shearer MD at [facility] [employer] 09/26/2033 [id number] / / [id number] [employer] Attune Fb Tib Base Sz 6 Por [id number] - [id number] Implanted:Qty: 1 on 12/27/2023 by Jose Shearer MD at [facility] Right: Knee [employer] 08/26/2033 [id number] / / [id number] [employer] Attune 6mm Posterior Stabilize Fix Bearing Knee 6 Insert Tibial [id number] - [id number] Implanted:Qty: 1 on 12/27/2023 by Jose Shearer MD at [facility] Right: Knee [employer] 08/26/2028 [id number] / / [id number] Procedures Procedure Name Priority Date/Time Associated Diagnosis Comments [place] ARTHROCENTESIS ASPIR&/INJ MAJOR JT/BURSA W/US Routine 04/01/2024 10:15 AM COOLER CONVEYOR LOADER Primary osteoarthritis of left knee PSA DIAGNOSTIC Routine 10/25/2021 8:36 AM CDT Prostate cancer (HCC) COLONOSCOPY Routine 01/14/2015 from Last 3 Months or Most Recently Relevant to Health Maintenance Results * [place] ARTHROCENTESIS ASPIR&/INJ MAJOR JT/BURSA W/US (04/01/2024 10:15 AM COOLER CONVEYOR LOADER) Narrative Keenan Mejia DO - 04/01/2024 10:15 AM COOLER CONVEYOR LOADER Keenan Mejia DO 04/01/2024 10:52 AM Large [...] guided left knee injection Patient name: Karena Gordon Fielder Performing physician: Keenan Mejia DO, AKHIL, PEGQSM Reason for procedure: Left knee osteoarthritis Patient [...] mg hyaluronate sodium, stabilized 60 mg/3 mL Keenan Mejia DO IN CLINIC/BEDSIDE [facility] [...] data last revised 21. Testing performed by: [facility], [address] [place] [address], [address] Blood 10/25/2021 8:36 AM CDT 10/25/2021 11:23 AM CDT David Martin MD LAB BLOOD ORDERABLES Final Re sult [facility] 1 [facility] Department [place] [address] * Colonoscopy (01/14/2015) Anatomical Region Laterality Modality Other Historical Provider ENDOSCOPY PROCEDURES Elizabeth l Result from Last 3 Months or Most Recently Relevant to Health Maintenance Insurance MEDICARE [facility] INSURANCE [facility] [place] [address] AETNA MEDICARE GOLD [facility] [place] [id number] MEDICARE AETNA MEDICARE Advance Directives For more information, please contact: [phone] * Full Code (Latest Code Status on File) Date Activated Date Inactivated Comments 12/27/2023 11:46 AM 12/28/2023 3:04 PM * Full Code Date Activated Date Inactivated Comments 04/28/2020 2:23 PM 04/29/2020 9:22 PM * Full Code Date Activated Date Inactivated Comments 08/07/2017 7:08 AM 08/07/2017 10:41 AM * Full Code Date Activated Date Inactivated Comments 05/01/2017 9:52 PM 05/03/2017 9:05 PM Care Teams Final Armature Tester Relationship Specialty Start Date End Date Rahul Pritchard MD PCP - General Family Practice 05/03/21 Jose Bar MD Consulting Physician Gastroenterology 05/03/17 Jose Shearer MD [address] [place] [address] [place] [address] Surgeon Orthopedic Surgery 12/28/23
[2024-05-20 19:51] LABS: Basophils Percent Auto 0.6 % (0.2-1.2); Eosinophils Absolute Auto 0.2 K/mm3 (0-0.3); Eosinophils Percent Auto 3.4 % (0-4.4); Hematocrit 54.5 % (42.0-52.0); Immature Granulocyte Absolute 0.01 K/mm3 (0.00-0.031); Immature Granulocyte Percent A 0.1 % (0-0.5); Lymphocytes Absolute Auto 1.59 K/mm3 (0.9-3.2); Lymphocytes Percent Auto 23.3 % (18.3-44.2); Mean Corpuscular HGB Conc 31.2 g/dl (32-36); Mean Corpuscular Hemoglobin 29.2 pg (26-34); Mean Corpuscular Volume 93.6 fl (80-100); Monocytes Absolute Auto 0.5 K/mm3 (0.1-0.6); Monocytes Percent Auto 7.6 % (2.6-8.5); Neutrophils Absolute Auto 4.4 K/mm3 (1.3-6.7); Platelet Count Result 206 k/mm3 (150-375); Red Blood Count 5.82 M/mm3 (4.6-6.20); Red Cell Distribution Width 15.1 % (11.5-14.5); White Blood Count 6.8 K/mm3 (4.5-10.0)
[2024-05-20 20:51] LABS: Alanine Aminotransferase 21 U/L (6-50); Albumin Level 4.1 g/dL (3.5-5.1); Alkaline Phosphatase 66 U/L (38-126); Anion Gap 5 mmol/L (4-12); Aspartate Amino Transferase 32 U/L (17-59); Bilirubin,Total 1.2 mg/dL (0.2-1.3); Blood Urea Nitrogen 16 mg/dL (9-20); Carbon Dioxide 32 mmol/L (22-30); Chloride 101 mmol/L (98-107); Cholesterol 144 mg/dL (0-200); Estimated Glomerular Filt Rate > 60; Glucose 103 mg/dL (65-110); HDL Direct 48 mg/dL; Magnesium 2.1 mg/dL (1.6-2.3); Potassium 4.1 mmol/L (3.4-5.0); Sodium 138 mmol/L (137-145); Triglycerides 70 mg/dL (<150)
[2024-05-20 21:02] LABS: LDL Cholesterol Direct 78 mg/dL
[2024-05-20 21:21] LABS: Prostate Specific Antigen < 0.1 ng/mL (< OR = 4.0)
== END 2024-05-20 08:48 | disposition home or self-care (01) ==
LOC: ANHBWCLAB 08:48
PROVIDERS: PCP Nurse Practitioner Adult Health; Visit Provider Nurse Practitioner Adult Health
DX: Z51.81 Encounter for therapeutic drug level monitoring (principal); Z12.5 Encounter for screening for malignant neoplasm of prostate; I10 Essential (primary) hypertension
CPT/HCPCS: 36415; 80053; 80061; 82607; 83735; 84153; 85025; G0103

== ENCOUNTER 2024-07-04 00:43 | Day surgery (SDC) | payer MEDICARE, SELFPAY ==
[2024-06-24 11:46] VITALS: BMI 31.8
--- OUTSIDE RECORDS SUMMARY | 2024-07-04 00:45 | XMS_ITS | Referral Summary ---
Author Organization [facility] 155 [facility] lt Address [address] [place] [address] Care Team Providers Care Dish Room Worker Name Role Phone Jose Bar MD Unavailable + Rahul Pritchard MD Primary Care Provider [phone] Jose Shearer MD Unavailable [phone] Encounters Date Type Department Care Team Description 04/29/2024 9:15 AM WALLPAPERER HELPER Office Visit [facility] Surgery [address] [place] [address] [place] [phone] Lacy Landeros NP Bilateral hand pain (Primary Dx); Pain of hand, unspecified laterality; Arthritis of carpometacarpal (CMC) joint of right thumb; Arthritis of carpometacarpal (CMC) joint of both thumbs from Last 3 Months Allergies No known [...] by mouth daily 42 tablet 4 Active Active Problems Problem Noted Date Diagnosed Date Aftercare following right knee joint replacement surgery 02/07/2024 Aftercare following left knee joint replacement surgery 01/11/2024 Prostate cancer 03/26/2020 Overview (03/26/2020): Added automatically from request for surgery [id number] Severe obesity (BMI 35.0-39.9) with comorbidity 02/10/2020 Current moderate episode of major depressive dis order 02/10/2020 GERD (gastroesophageal reflux disease) 8 Acute gastric ulcer 05/03/2017 Acute blood loss anemia 05/02/2017 Assessment & Plan (05/02/2017 12:20 PM WALLPAPERER HELPER): Consistent with upper GIB, will proceed with urgent EGD later today Keep hb>7 Melena 05/02/2017 Assessment & Plan (05/02/2017 12:21 PM WALLPAPERER HELPER): Npo status, EGD. IV protonix and monitor h/h Dyspnea on exertion 05/02/2017 Assessment & Plan (05/02/2017 12:21 PM WALLPAPERER HELPER): Due to symptomatic anemia, better after blood transfusion Exertional chest pain 05/02/2017 Gastrointestinal hemorrhage with melena 05/03/19 18 Assessment & Plan (05/02/2017 12:22 PM WALLPAPERER HELPER): egd Arthritis 09/21/2015 Pure hypercholesterolemia 09/21/2015 HTN [...] on file Legal Sex Male 7:01 PM WALLPAPERER HELPER Gender Identity Not on file Sexual Orientation Not on file Last Filed Vital Signs Vital Sign Reading Time Taken Comments Blood Pressure 125/81 04/01/2024 10:21 AM WALLPAPERER HELPER Pulse 66 04/01/2024 10:21 AM WALLPAPERER HELPER Temperature 36.5 C (97.7 F) 12/28/2023 8:41 AM CDT Respiratory Rate 16 03/25/2024 9:11 AM WALLPAPERER HELPER Oxygen Saturation 95% 12/28/2023 8:41 AM CDT Inhaled Oxygen Concentration - - Weight 98.4 kg (217 lb) 04/01/2024 10:21 AM WALLPAPERER HELPER Height 172.7 cm (5' 8 ) 04/01/2024 10:21 AM WALLPAPERER HELPER Body Mass Index 32.99 04/01/2024 10:21 AM WALLPAPERER HELPER Plan of Treatment Not on file Medical Devices Implanted Type Area Reimbursement Consultant Device Identifier Shelf Expiration Date Model / Serial / Lot [employer] Component Femoral Knee Porous Posterior Stabilized Right Attune Size 6 [place] Chromium [id number] - [id number] Implanted:Qty: 1 on 12/27/2023 by Jose Shearer MD at [facility] [employer] 09/26/2033 [id number] / / [id number] [employer] Attune Fb Tib Base Sz 6 Por [id number] - [id number] Implanted:Qty: 1 on 12/27/2023 by Jose Shearer MD at [facility] Right: Knee [employer] 08/26/2033 [id number] / / [id number] [employer] Attune 6mm Posterior Stabilize Fix Bearing Knee 6 Insert Tibial [id number] - [id number] Implanted:Qty: 1 on 12/27/2023 by Jose Shearer MD at [facility] Right: Knee [employer] 08/26/2028 [id number] / / [id number] Procedures Procedure Name Priority Date/Time Associated Diagnosis Comments PSA DIAGNOSTIC Routine 10/25/2021 8:36 AM CDT Prostate cancer (HCC) COLONOSCOPY Routine 01/14/2015 from Last 3 Months or Most Recently Relevant to Health Maintenance Results * PSA diagnostic (10/25/2021 8:36 AM CDT) PSA-Total <0.01 <=6.20 ng/mL [facility] ([place] Comment: Interpretive Data AGE SEX REFERENCE INTERVAL [...] data last revised 21. Testing performed by: [facility], [address] [place] [address]., [address] Blood 10/25/2021 8:36 AM CDT 10/25/2021 11:23 AM CDT us David Martin MD LAB BLOOD ORDERABLES Final Re sult [facility] ([place]) 1 [facility] Department [place] [address] * Colonoscopy (01/14/2015) Anatomical Region Laterality Modality Other us Historical Provider ENDOSCOPY PROCEDURES Elizabeth l Result from Last 3 Months or Most Recently Relevant to Health Maintenance Insurance MEDICARE [facility] [place] [address] MEDICARE AETNA MEDICARE Advance Directives For more information, please contact: [phone] * Full Code (Latest Code Status on File) Date Activated Date Inactivated Comments 12/27/2023 11:46 AM 12/28/2023 3:04 PM * Full Code Date Activated Date Inactivated Comments 04/28/2020 2:23 PM 04/29/2020 9:22 PM * Full Code Date Activated Date Inactivated Comments 08/07/2017 7:08 AM 08/07/2017 10:41 AM * Full Code Date Activated Date Inactivated Comments 05/01/2017 9:52 PM 05/03/2017 9:05 PM Care Teams Dish Room Worker Relationship Specialty Start Date End Date Rahul Pritchard MD PCP - General Family Practice 05/03/21 Jose Bar MD Consulting Physician Gastroenterology 05/03/17 Jose Shearer MD [address] [place] [address] [place] [address] Surgeon Orthopedic Surgery 12/28/23
--- OUTSIDE RECORDS SUMMARY | 2024-07-04 00:45 | XMS_ITS | Clinical Summary ---
Author Organization [facility] [address] [facility] lt Address [address] [facility] [facility] [place] [address] Care Team Providers Care Court Messenger Name Role Phone Jose Bar MD Unavailable + Rahul Pritchard MD Primary Care Provider [phone] Jose Shearer MD Unavailable [phone] Allergies No known active allergies Medications furosemide [...] (03/26/2020): Added automatically from request for surgery [id number] Severe obesity (BMI 35.0-39.9) with comorbidity 02/10/2020 Current moderate episode of major depressive dis order 02/10/2020 GERD (gastroesophageal reflux disease) 8 Acute gastric ulcer 05/03/2017 Acute blood loss anemia 05/02/2017 Assessment & Plan (05/02/2017 12:20 PM ORNAMENTAL IRON WORKER): Consistent with upper GIB, will proceed with urgent EGD later today Keep hb>7 Melena 05/02/2017 Assessment & Plan (05/02/2017 12:21 PM ORNAMENTAL IRON WORKER): Npo status, EGD. IV protonix and monitor h/h Dyspnea on exertion 05/02/2017 Assessment & Plan (05/02/2017 12:21 PM ORNAMENTAL IRON WORKER): Due to symptomatic anemia, better after blood transfusion Exertional chest pain 05/02/2017 Gastrointestinal hemorrhage with melena 05/03/19 18 Assessment & Plan (05/02/2017 12:22 PM ORNAMENTAL IRON WORKER): egd Arthritis 09/21/2015 Pure hypercholesterolemia 09/21/2015 HTN [...] Department Care Team Description 04/29/2024 9:15 AM ORNAMENTAL IRON WORKER Office Visit [facility] Surgery [address] [place] [address] [address] [place] [address] Lacy Landeros, EDWARD Bilateral hand pain (Primary Dx); Pain of hand, unspecified laterality; Arthritis of carpometacarpal (CMC) joint of right thumb; Arthritis of carpometacarpal (CMC) joint of both thumbs from Last 3 Months Immunizations Immunization Administration [...] on file Legal Sex Male 7:01 PM ORNAMENTAL IRON WORKER Gender Identity Not on file Sexual Orientation Not on file Obstetrics History Last Filed Vital Signs Vital Sign Reading Time Taken Comments Blood Pressure 125/81 04/01/2024 10:21 AM ORNAMENTAL IRON WORKER Pulse 66 04/01/2024 10:21 AM ORNAMENTAL IRON WORKER Temperature 36.5 C (97.7 F) 12/28/2023 8:41 AM CDT Respiratory Rate 16 03/25/2024 9:11 AM ORNAMENTAL IRON WORKER Oxygen Saturation 95% 12/28/2023 8:41 AM CDT Inhaled Oxygen Concentration - - Weight 98.4 kg (217 lb) 04/01/2024 10:21 AM ORNAMENTAL IRON WORKER Height 172.7 cm (5' 8 ) 04/01/2024 10:21 AM ORNAMENTAL IRON WORKER Body Mass Index 32.99 04/01/2024 10:21 AM ORNAMENTAL IRON WORKER Plan of Treatment Health Maintenance Due Date [...] history exists Medical Devices Implanted Type Area Telecommunications Line Mechanic Device Identifier Shelf Expiration Date Model / Serial / Lot [employer] Component Femoral Knee Porous Posterior Stabilized Right Attune Size 6 [employer] Chromium [id number] - [id number] Implanted:Qty: 1 on 12/27/2023 by Jose Shearer MD at [facility] [employer] 09/26/2033 [id number] / / [id number] [employer] Attune Fb Tib Base Sz 6 Por [id number] - [id number] Implanted:Qty: 1 on 12/27/2023 by Jose Shearer MD at [facility] Right: Knee [employer] 08/26/2033 [id number] / / [id number] [employer] Attune 6mm Posterior Stabilize Fix Bearing Knee 6 Insert Tibial [id number] - [id number] Implanted:Qty: 1 on 12/27/2023 by Jose Shearer MD at [facility] Right: Knee [employer] 08/26/2028 [id number] / / [id number] Procedures Procedure Name Priority Date/Time Associated Diagnosis Comments PSA DIAGNOSTIC Routine 10/25/2021 8:36 AM CDT Prostate cancer (HCC) COLONOSCOPY Routine 01/14/2015 from Last 3 Months or Most Recently Relevant to Health Maintenance Results * PSA diagnostic (10/25/2021 8:36 AM CDT) PSA-Total <0.01 <=6.20 ng/mL [facility] ([place]) Comment: Interpretive Data AGE SEX REFERENCE INTERVAL [...] data last revised 21. Testing performed by: [facility], [address] [place] [address]., [address] Blood 10/25/2021 8:36 AM CDT 10/25/2021 11:23 AM CDT David Martin MD LAB BLOOD ORDERABLES Final Re sult [facility] ([place]) 1 [facility] Department [place] [address] * Colonoscopy (01/14/2015) Anatomical Region Laterality Modality Other us Historical Provider ENDOSCOPY PROCEDURES Elizabeth l Result from Last 3 Months or Most Recently Relevant to Health Maintenance Insurance MEDICARE [facility] AETNA MEDICARE GOLD MEDICARE [facility] Address: [address] [address] [place] [address] AETNA MEDICARE Advance Directives For more information, please contact: [phone] * Full Code (Latest Code Status on File) Date Activated Date Inactivated Comments 12/27/2023 11:46 AM 12/28/2023 3:04 PM * Full Code Date Activated Date Inactivated Comments 04/28/2020 2:23 PM 04/29/2020 9:22 PM * Full Code Date Activated Date Inactivated Comments 08/07/2017 7:08 AM 08/07/2017 10:41 AM * Full Code Date Activated Date Inactivated Comments 05/01/2017 9:52 PM 05/03/2017 9:[address] Messenger Relationship Specialty Start Date End Date Rahul Pritchard MD PCP - General Family Practice 05/03/21 Jose Bar MD Consulting Physician Gastroenterology 05/03/17 Jose Shearer MD [address] [place] [address] [place] [address] Surgeon Orthopedic Surgery 12/28/23
--- OUTSIDE RECORDS SUMMARY | 2024-07-04 00:45 | XMS_ITS | Encounter Summary ---
Author Organization [facility] Healthcare Address [address] [place] [address] Care Team Providers Care Manager Business Name Role Phone Jai Carson MD Primary Care Provider + [phone] Jose Bar MD Unavailable + Rahul Pritchard MD Primary Care Provider + [phone] Jose Shearer MD Unavailable [phone] Encounter Details Date Type Department Care Team (Late st Contact Info) Description 03/03/2020 Telephone [facility] Radiology [address] [place] [address] Nina Taylor, HOSPICE CASE MANAGER [address] [facility] [place] [address] Social History Tobacco Use Types Packs/Day Years Used Date Smoking Tobacco: Never Smokeless Tobacco: Never Alcohol Use Standard Drinks/Week Comments Not Currently 0 (1 standard drink = 0.6 oz pur e alcohol) PHQ-2 Answer Date Recorded PHQ-2 Score 0 02/10/2020 Sex and Gender Information Value Date Recorded Sex Assigned at Not on file Legal Sex Male 7:01 PM QUALITY ASSURANCE PRACTICE MANAGER Gender Identity Not on file Sexual Orientation Not on file documented as of this encounter Plan of Treatment Not on file documented as of this encounter Visit Diagnoses Not on filedocumented in this encounter Care Teams Manager Business Relationship Specialty Start Date End Date [place] [address] PCP - General 03/06/07 05/02/21 Rahul Pritchard MD [address] [place] [address] PCP - General Family Practice 05/03/21 Jose Bar MD [address] [place] [address] Consulting Physician Gastroenterology 05/03/17 Jose Shearer MD [address] [facility] [facility] [address] Surgeon Orthopedic Surgery 12/28/23 documented as of this encounter
--- OUTSIDE RECORDS SUMMARY | 2024-07-04 00:45 | XMS_ITS | Clinical Summary ---
Author Organization [facility] Address [address], [place] [address] Phone Care Team Providers Care Rubber Goods Repairer Name Role Phone Jai Carson MD Primary Care Provider [phone] Allergies No known active allergies Medications lansoprazole [...] Comments Blood Pressure 130/82 02/25/2018 8:46 AM ASSISTANT PRINCIPAL Pulse 78 02/25/2018 8:46 AM ASSISTANT PRINCIPAL Temperature 37.2 C (99 F) 02/25/2018 8:46 AM ASSISTANT PRINCIPAL Respiratory Rate 16 02/25/2018 8:46 AM ASSISTANT PRINCIPAL Oxygen Saturation 96% 02/25/2018 8:46 AM ASSISTANT PRINCIPAL Inhaled Oxygen Concentration - - Weight 115.7 kg (255 lb) 02/25/2018 8:46 AM ASSISTANT PRINCIPAL Height 172.7 cm (5' 8 ) 09/21/2015 [...] [place] [address] MEDICARE COMMERCIAL GENERIC Care Teams Rubber Goods Repairer Relationship Specialty Start Date End Date Jai Carson MD [address] [place] [address] PCP - General Internal Medicine 02/25/18
[2024-07-04 06:12] VITALS: BP 145/82; PULSE 73; RESP 18; TEMP 36.2; O2SAT 96; BMI 32.5
[2024-07-04] MEDS: LACTATED RINGERS 1,000 ML 150 ML IV CONT (06:21)
--- NOTE | 2024-07-04 07:30 | P.PNAN_ITS ---
Anes - Initial Pre Proc Eval Procedure: Operation Date: 07/04/24 07:30 Proposed Procedures p Esophagogastroduodenoscopy - Jose Cotton MD Date/Time: 07/04/24 07:30 Surgeon: Jose Cotton MD Pre Op Diagnosis: Gastro-esophageal reflux disease without esophagit Patient Data Age: 73 Gender: M Height: 1.73 m Weight: 97.2 kg Last Vital Signs Temp 97.2 F L 07/04/24 06:12 Pulse 73 07/04/24 06:12 Resp 18 07/04/24 06:12 BP 145/82 H 07/04/24 06:12 Pulse Ox 96 07/04/24 06:12 O2 Del Method Room Air 07/04/24 06:12 Allergies Allergy/AdvReac Type Severity Reaction Status Date / Time No Known Allergies Allergy Verified 07/04/24 06:11 Home Medications ?Medication ?Instructions ?Recorded ?Confirmed ?Type oxybutynin chloride 15 mg 15 mg PO DAILY #90 tabs 05/15/23 07/04/24 Rx tablet,extended release 24 hr hydrochlorothiazide 25 mg tablet 25 mg PO DAILY #90 tabs 11/20/23 07/04/24 Rx citalopram 40 mg tablet See Rx Instructions .Route 01/11/24 07/04/24 Rx .COMPLEX #90 tabs pantoprazole 40 mg tablet,delayed 40 mg PO BID #180 tabs 05/20/24 07/04/24 Rx release vitamin E 670 mg (1,000 unit) 670 mg PO DAILY 06/24/24 07/04/24 History capsule rosuvastatin 20 mg tablet See Rx Instructions .Route 07/02/24 07/04/24 Rx .COMPLEX #90 tabs Patient hx anesthesia problems: none Family hx anesthesia problems: none Results Review: All pre-operative results and documents have been reviewed as part of the pre- operative evaluation. [facility] Past Medical History Medical History Cancer Depression Hypertension KACI (obstructive sleep apnea) Surgical History Surgical History History of back surgery History of nasal surgery History of prostate surgery Family History Family History Father Heart problem Social History Social History Smoking status: Never smoker Alcohol intake: never Drinks per week: 1 Substance use: never Substance use type: does not use Lack of Transportation: No Concerned About Future Housing: No Difficulty Paying Gas/Electric Bills: No Difficulty Paying for Meds: No Currently Unemployed: No Education: High School Diploma/GED Difficulty w/ Childcare or Family Care: No Living arrangements: with family Spiritual care concerns: No Anes - Eval Final PreProcedure Day of Procedure 07/04/24 07:30 Patient weight: obese Heart: regular rate and rhythm Lungs: clear to auscultation Airway: Mallampati scale class II Neurological: alert and oriented Last oral intake: >/= 8 hours ASA classification: III Emergent: no Anesthetic plan: proceed Anesthesia type and monitoring: general GIVS and standard monitoring Results Review: All pre-operative results and documents have been reviewed as part of the pre- operative evaluation. Informed Consent: The patient's anesthetic plan and its attendant risks and benefits were discussed with the patient/family/POA. Questions were solicited and answers provided to the satisfaction of the patient/family/POA.
--- NOTE | 2024-07-04 07:32 | PM.HPGS ---
History of Present Illness History of Present Illness Consent: Risks, benefits, and alternatives have been discussed and questions answered. Patient agrees to proceed with procedure. Chief complaint: Gastro-esophageal reflux disease without esophagit Narrative: Emmanuel Khanna is a 73 year old male with gerd and dysphagia on pantoprazole Review of Systems Review of Systems: All systems reviewed & are unremarkable except as noted in HPI and below PMFSH Past Medical History Medical History Cancer Depression Hypertension KACI (obstructive sleep apnea) Surgical History Surgical History History of back surgery History of nasal surgery History of prostate surgery Family History Family History Father Heart problem Social History Social History Smoking status: Never smoker Alcohol intake: never Drinks per week: 1 Substance use: never Substance use type: does not use Lack of Transportation: No Concerned About Future Housing: No Difficulty Paying Gas/Electric Bills: No Difficulty Paying for Meds: No Currently Unemployed: No Education: High School Diploma/GED Difficulty w/ Childcare or Family Care: No Living arrangements: with family Spiritual care concerns: No Meds Home Medications and Allergies Home Medications ?Medication ?Instructions ?Recorded ?Confirmed ?Type oxybutynin chloride 15 mg 15 mg PO DAILY #90 tabs 05/15/23 07/04/24 Rx tablet,extended release 24 hr hydrochlorothiazide 25 mg tablet 25 mg PO DAILY #90 tabs 11/20/23 07/04/24 Rx citalopram 40 mg tablet See Rx Instructions .Route 01/11/24 07/04/24 Rx .COMPLEX #90 tabs pantoprazole 40 mg tablet,delayed 40 mg PO BID #180 tabs 05/20/24 07/04/24 Rx release vitamin E 670 mg (1,000 unit) 670 mg PO DAILY 06/24/24 07/04/24 History capsule rosuvastatin 20 mg tablet See Rx Instructions .Route 07/02/24 07/04/24 Rx .COMPLEX #90 tabs Allergies Allergy/AdvReac Type Severity Reaction Status Date / Time No Known Allergies Allergy Verified 07/04/24 06:11 Vital Signs Vital Signs - 24 hr 07/04/24 06:12 Temperature 97.2 F L Pulse Rate 73 Respiratory Rate 18 Blood Pressure 145/82 H Pulse Oximetry 96 Oxygen Delivery Room Air Exam Const: General: comfortable and no acute distress HENMT: Face/Nose/Sinus: Normal nares present Eyes: General: appearance normal, both eyes and all related structures Neck: Neck: no JVD Resp: Auscultation: clear to auscultation bilaterally Cardio: Rate: regular rate Rhythm: regular rhythm GI: Inspection: non-distended GI Palp: Yes Soft to palpation Skin: General skin exam: normal color Neuro: General: gait normal Speech: normal speech Extrem: General: normal to inspection Psych: Mental Status: mental status grossly normal Assessment and Plan Assessment and plan (1) GERD (gastroesophageal reflux disease): Code(s): K21.9 - Gastro-esophageal reflux disease without esophagitis Status: Acute Assessment and Plan: egd with bx
[2024-07-04] MEDS: BENZOCAINE (*SP) 60 ML SPRAY CAN (HURRICAINE) 1 SPRAY MUCOUS MEM (07:35)
[2024-07-04 07:43] VITALS: BP 110/74; PULSE 75; RESP 15; O2SAT 96
[2024-07-04 07:53] VITALS: BP 113/68; PULSE 66; RESP 14; O2SAT 97
[2024-07-04 08:03] VITALS: BP 127/77; PULSE 64; RESP 17; O2SAT 97
== END 2024-07-04 08:09 | disposition home or self-care (01) ==
PROVIDERS: PCP Nurse Practitioner Adult Health; Referring Provider Nurse Practitioner Adult Health; Visit Provider Internal Medicine Gastroenterology
PROC: 0DJ08ZZ Inspection of Upper Intestinal Tract, Via Natural or Artificial Opening Endoscopic (ICD-10-PCS; CPT 43239; principal; 2024-07-04 07:30)
DX: K21.00 Gastro-esophageal reflux disease with esophagitis, without bleeding (principal); K44.9 Diaphragmatic hernia without obstruction or gangrene; I10 Essential (primary) hypertension; G47.33 Obstructive sleep apnea (adult) (pediatric); F32.A Depression, unspecified; E66.9 Obesity, unspecified; Z68.32 Body mass index [BMI] 32.0-32.9, adult; Z98.890 Other specified postprocedural states; Z98.1 Arthrodesis status; Z85.9 Personal history of malignant neoplasm, unspecified; Z82.49 Family history of ischemic heart disease and other diseases of the circulatory system
CPT/HCPCS: 43239; 88305; J2003; J2704; J7120

== ENCOUNTER 2024-11-25 08:55 | Outpatient (CLI) | payer MEDICARE, SELFPAY ==
--- OUTSIDE RECORDS SUMMARY | 2024-11-25 09:19 | XMS_ITS | Clinical Summary ---
Author Organization [facility] [address] [facility] lt Address [address] [place] [address] Care Team Providers Care Electrical Design Engineer Name Role Phone Jose Bar MD Unavailable + Rahul Pritchard MD Primary Care Provider [phone] Jose Shearer MD Unavailable Allergies No known active allergies Medications furosemide [...] lidocaine (XYLOCAINE) 10 mg/mL (1 %) injection 15 mgIndications:Administratio n of Local Anesthesia 15 mg OTHER Once 11/04/2024 11/04/2024 End ed triamcinolone (KENALOG) 40 mg/mL injection 80 mgIndications:CMC arthritis,Pain of hand, unspecified laterality 80 mg OTHER Once 11/04/2024 11/04/2024 En ded Active Problems Problem Noted Date Diagnosed Date Cellulitis 11/04/2024 Depression 11/04/2024 Hearing loss 11/04/2024 Incontinence 11/04/2024 Increased BMI 11/04/2024 KACI (obstructive sleep apnea) 11/04/2024 Rash 11/04/2024 Rash on scrotum 11/04/2024 Aftercare following right knee joint replacement surgery 02/07/2024 Aftercare following left knee joint replacement surgery 01/11/2024 Prostate cancer 03/26/2020 Overview (03/26/2020): Added automatically from request for surgery [id number] Severe obesity (BMI 35.0-39.9) with comorbidity 02/10/2020 Current moderate episode of major depressive dis order 02/10/2020 GERD (gastroesophageal reflux disease) 8 Acute gastric ulcer 05/03/2017 Acute blood loss anemia 05/02/2017 Assessment & Plan (05/02/2017 12:20 PM REGIONAL MEDICAL DIRECTOR): Consistent with upper GIB, will proceed with urgent EGD later today Keep hb>7 Melena 05/02/2017 Assessment & Plan (05/02/2017 12:21 PM REGIONAL MEDICAL DIRECTOR): Npo status, EGD. IV protonix and monitor h/h Dyspnea on exertion 05/02/2017 Assessment & Plan (05/02/2017 12:21 PM REGIONAL MEDICAL DIRECTOR): Due to symptomatic anemia, better after blood transfusion Exertional chest pain 05/02/2017 Gastrointestinal hemorrhage with melena 05/03/19 18 Assessment & Plan (05/02/2017 12:22 PM REGIONAL MEDICAL DIRECTOR): egd Arthritis 09/21/2015 Pure hypercholesterolemia 09/21/2015 HTN (hypertension) 03/16/2015 Benign prostatic hypertrophy without urinary obs truction 07/13/2013 Overview (06/03/2016): BPH W/O URINARY OBSTRUCT Blood in urine 09/03/2009 Symptomatic anemia Gastric ulcer Resolved Problems Problem Noted Date Diagnosed Date Resolved Date Primary osteoarthritis of right knee 12/15/2023 02/07/2024 Bilateral primary osteoarthritis of knee 05/15/2017 02/07/2024 Encounters Date Type Department Care Team Description 11/04/2024 9:00 AM CDT Office Visit [facility] [address] [place] [address] [place] [id number] Lacy Landeros, ORACLE IDENTITY MANAGEMENT CONSULTANT CMC arthritis (Primary Dx); Pain of hand, unspecified laterality from Last 3 Months Immunizations Immunization Administration [...] on file Legal Sex Male 7:01 PM REGIONAL MEDICAL DIRECTOR Gender Identity Not on file Sexual Orientation Not on file Obstetrics History Last Filed Vital Signs Vital Sign Reading Time Taken Comments Blood Pressure 125/81 04/01/2024 10:21 AM REGIONAL MEDICAL DIRECTOR Pulse 66 04/01/2024 10:21 AM REGIONAL MEDICAL DIRECTOR Temperature 36.5 C (97.7 F) 12/28/2023 8:41 AM CDT Respiratory Rate 16 03/25/2024 9:11 AM REGIONAL MEDICAL DIRECTOR Oxygen Saturation 95% 12/28/2023 8:41 AM CDT Inhaled Oxygen Concentration - - Weight 98.4 kg (217 lb) 04/01/2024 10:21 AM REGIONAL MEDICAL DIRECTOR Height 172.7 cm (5' 8) 04/01/2024 10:21 AM REGIONAL MEDICAL DIRECTOR Body Mass Index 32.99 04/01/2024 10:21 AM REGIONAL MEDICAL DIRECTOR Plan of Treatment Health Maintenance Due Date Last Done Comments Hepatitis C Screening 1950 Hepatitis B Screening 10/17/1969 Well Visit 65+ 02/09/2021 02/10/2020, 1210/2018, 11/07/2016 Zoster Vaccine (2 of 3) 11/29/2021 10/04/2021, 04/05 Influenza Vaccine (#1) 2024 , 01/10/2019, 12/04/2017, Additional history exists Depression [...] history exists Medical Devices Implanted Type Area Chief Operating Engineer Device Identifier Shelf Expiration Date Model / Serial / Lot [employer] Component Femoral Knee Porous Posterior Stabilized Right Attune Size 6 [employer] [id number] - [id number] Implanted:Qty: 1 on 12/27/2023 by Jose Shearer MD at [facility] [employer] 09/26/2033 [id number] / / [id number] [employer] Attune Fb Tib Base Sz 6 Por [id number] - [id number] Implanted:Qty: 1 on 12/27/2023 by Jose Shearer MD at [facility] Right: Knee [employer] 08/26/2033 [id number] / / [id number] [employer] Attune 6mm Posterior Stabilize Fix Bearing Knee 6 Insert Tibial [id number] - [id number] Implanted:Qty: 1 on 12/27/2023 by Jose Shearer MD at [facility] Right: Knee [employer] 08/26/2028 [id number] / / [id number] Procedures Procedure Name Priority Date/Time Associated Diagnosis Comments PSA DIAGNOSTIC Routine 10/25/2021 8:36 AM CDT Prostate cancer (HCC) COLONOSCOPY Routine 01/14/2015 from Last 3 Months or Most Recently Relevant to Health Maintenance Results * PSA diagnostic (10/25/2021 8:36 AM CDT) PSA-Total <0.01 <=6.20 ng/mL SONIYA RIVAS ([place]) Comment: Interpretive Data AGE SEX REFERENCE INTERVAL [...] data last revised 21. Testing performed by: [facility], [address] [place] [address], [place]., [address] Blood 10/25/2021 8:36 AM CDT 10/25/2021 11:23 AM CDT David Martin MD LAB BLOOD ORDERABLES Final Re sult [facility] ([place]) [address] [facility] [place] [address] * Colonoscopy (01/14/2015) Anatomical Region Laterality Modality Other Historical Provider ENDOSCOPY PROCEDURES Elizabeth l Result from Last 3 Months or Most Recently Relevant to Health Maintenance [place] [address] [facility] [place]UR[place] [id number] [place] [address] [place] [address] [place] [address] [employer] MED[employer] GOLD Advance Directives For more information, please contact: [phone] * Full Code (Latest Code Status on File) Date Activated Date Inactivated Comments 12/27/2023 11:46 AM 12/28/2023 3:04 PM * Full Code Date Activated Date Inactivated Comments 04/28/2020 2:23 PM 04/29/2020 9:22 PM * Full Code Date Activated Date Inactivated Comments 08/07/2017 7:08 AM 08/07/2017 10:41 AM * Full Code Date Activated Date Inactivated Comments 05/01/2017 9:52 PM 05/03/2017 9:05 PM Care Teams Electrical Design Engineer Relationship Specialty Start Date End Date Rahul Pritchard MD PCP - General Family Practice 05/03/21 Jose Bar MD Consulting Physician Gastroenterology 05/03/17 Jose Shearer MD [address] [place] [address] [place] [id number] Surgeon Orthopedic Surgery 12/28/23
--- OUTSIDE RECORDS SUMMARY | 2024-11-25 09:19 | XMS_ITS | Clinical Summary ---
Author Organization [facility] Address [address], [place] [address] Phone Care Team Providers Care Sql Programmer Analyst Name Role Phone Jai Carson MD Primary Care Provider [phone] Allergies No known active allergies Medications lansoprazole [...] Comments Blood Pressure 130/82 02/25/2018 8:46 AM INSIDE SALES SUPERVISOR Pulse 78 02/25/2018 8:46 AM INSIDE SALES SUPERVISOR Temperature 37.2 C (99 F) 02/25/2018 8:46 AM INSIDE SALES SUPERVISOR Respiratory Rate 16 02/25/2018 8:46 AM INSIDE SALES SUPERVISOR Oxygen Saturation 96% 02/25/2018 8:46 AM INSIDE SALES SUPERVISOR Inhaled Oxygen Concentration - - Weight 115.7 kg (255 lb) 02/25/2018 8:46 AM INSIDE SALES SUPERVISOR Height 172.7 cm (5' 8) 09/21/2015 9:46 AM CDT Body Mass Index 38.77 09/21/2015 9:46 AM CDT Plan of Treatment Health Maintenance Due Date Last Done Comments Hepatitis C Virus (HCV) Screening 1950 Cologuard 10/17/1996 Immunochemical Fecal Occult Blood 10/17/1996 Pneumococcal Immunization (5 0+ years) (1 of 1 - PCV) 10/17/2001 Zoster Immunization (1 of 2) 10/17/2001 Influenza Immunization (#1) 10/28/202401/29, 12/22/2014 SARS-COV-2 Immunization ( - season) 2024 01/04/2021, 05/29/2020, 05/08/2020 Colonoscopy 01/14/2025 01/14/2015 Colorectal Cancer Screening 01/14/2025 Td Immunization Every 10 Yea rs (Adults With 1 Tdap) 03/16/2025 03/16/2015 Respiratory Syncytial Virus (RSV) Immunization (Adult) (1 - 1-dose 75+ series) 10/17/2026 Hepatitis B Immunization Aged Out No longer eligible based on patient's age to complete this topic Human Papillomavirus (HPV) Immunization Aged Out No longer eligible b ased on patient's age to complete this topic Meningococcal Immunization (ACWY) Aged Out No longer eligible b ased on patient's age to complete this topic Rotavirus Immunization Aged Out No lo nger eligible based on patient's age to complete [place] [address] [place] [address] MEDICARE COMMERCIAL GENERIC Care Teams Sql Programmer Analyst Relationship Specialty Start Date End [place] [address] PCP - General Internal Medicine 02/25/18
--- OUTSIDE RECORDS SUMMARY | 2024-11-25 09:19 | XMS_ITS | Encounter Summary ---
Author Organization [facility] Healthcare Address [address] [place] [address] Care Team Providers Care Accounts Receivable Analyst Name Role Phone aJi Carson MD Primary Care Provider [phone] Jose Bar MD Unavailable + Rahul Pritchard MD Primary Care Provider + [phone] Jose Shearer MD Unavailable [phone] Encounter Details Date Type Department Care Team (Late st Contact Info) Description 03/03/2020 Telephone [facility] Radiology [address] [place] [address] Nina Taylor, SCIENTIFIC INFORMATICS PROJECT LEADER [address] [facility] [place] [address] Social History Tobacco Use Types Packs/Day Years Used Date Smoking Tobacco: Never Smokeless Tobacco: Never Alcohol Use Standard Drinks/Week Comments Not Currently 0 (1 standard drink = 0.6 oz pur e alcohol) PHQ-2 Answer Date Recorded PHQ-2 Score 0 02/10/2020 Sex and Gender Information Value Date Recorded Sex Assigned at Not on file Legal Sex Male 7:01 PM TIRE WORKER Gender Identity Not on file Sexual Orientation Not on file documented as of this encounter Plan of Treatment Not on file documented as of this encounter Visit Diagnoses Not on filedocumented in this encounter Care Teams Accounts Receivable Analyst Relationship Specialty Start Date End Date [place] [address] PCP - General 03/06/07 05/02/21 Rahul Pritchard MD [address] [place] [address] PCP - General Family Practice 05/03/21 Jose Bar MD [address] [place] [address] Consulting Physician Gastroenterology 05/03/17 Jose Shearer MD [address] [facility] [place] [address] Surgeon Orthopedic Surgery 12/28/23 documented as of this encounter
[2024-11-25 18:44] LABS: Alanine Aminotransferase 20 U/L (6-50); Albumin Level 3.8 g/dL (3.5-5.1); Alkaline Phosphatase 63 U/L (38-126); Anion Gap 4 mmol/L (4-12); Aspartate Amino Transferase 36 U/L (17-59); Bilirubin,Total 1.4 mg/dL (0.2-1.3); Blood Urea Nitrogen 18 mg/dL (9-20); Calcium 9.3 mg/dL (8.4-10.2); Carbon Dioxide 31 mmol/L (22-30); Chloride 102 mmol/L (98-107); Cholesterol 130 mg/dL (0-200); Estimated Glomerular Filt Rate > 60; Glucose 116 mg/dL (65-110); HDL Direct 44 mg/dL; Potassium 3.6 mmol/L (3.4-5.0); Sodium 137 mmol/L (137-145); Total Protein 6.9 g/dL (6.3-8.2); Triglycerides 72 mg/dL (<150)
[2024-11-25 19:08] LABS: Hemoglobin A1C 5.6 % (<5.7)
== END 2024-11-25 08:56 | disposition home or self-care (01) ==
LOC: ANHBWCLAB 08:57
PROVIDERS: PCP Nurse Practitioner Adult Health; Visit Provider Nurse Practitioner Adult Health
DX: E78.5 Hyperlipidemia, unspecified (principal); R73.9 Hyperglycemia, unspecified
CPT/HCPCS: 36415; 80053; 80061; 83036